=== PATIENT | male | born 1960 | race Caucasian/White ===

== ENCOUNTER 2017-11-23 09:27 | Inpatient (IN) ==
--- NOTE | 2017-11-23 11:47 | ED ---
HPI General Chief complaint: Extremity Injury, Lower Stated complaint: both legs swollen Time Seen by Provider: 11/23/17 11:20 Source: patient Mode of arrival: ambulatory Limitations: no limitations History of Present Illness HPI Narrative: 57-year-old male complaining of lower extremity swelling. Patient states that he noticed increasing swelling of lower extremity for the past 10 days. Patient had laceration to the right lower extremity 5 days ago. Patient denies any headache. Patient denies any chest pain shortness of breath. Patient has history of COPD. Patient does not have an inhaler at home. Patient denies any abdominal pain. Patient denies any nausea vomiting diarrhea. Patient denies any extremity pain. Patient denies fever chills. Patient is a smoker. Patient denies any past medical history. Patient states he drinks alcohol occasionally. MD Complaint: extremity swelling Onset (ago): day(s) Pain Consistency: constant Location: lower extremity Severity scale (1-10): 5 Radiation: none Relieving factors: nothing Exacerbating factors: nothing Associated symptoms: denies other symptoms Related Data Allergies Allergy/AdvReac Type Severity Reaction Status Date / Time No Known Allergies Allergy Uncoded 02/28/13 14:36 Review of Systems ROS: all other systems reviewed are negative PMFSH Medical History Medical History COPD (chronic obstructive pulmonary disease) (Acute) HTN (hypertension) (Acute) Heel spur (Acute) High cholesterol (Acute) Hx of fracture of leg (Acute) Surgical History Surgical History History of surgery on arm (Acute) Hx of foot surgery (Acute) Social History Social History Substance History: Active Abuse Second Hand Smoke Exposure: No Smoking Status: Current every day smoker Tobacco Type: Cigarettes How Often Do You Have a Drink Containing Alcohol: 2 to 4 times a month Recent Travel in [facility] within the Last 8 Weeks: No Recent Out of Country Travel within the Last 8 Weeks: No Exam Narrative Exam Narrative: GENERAL: Well-nourished, well-developed patient. SKIN: Focused skin assessment warm/dry. HEAD: Normocephalic. EYES: No scleral icterus. No injection or drainage. NECK: Supple, trachea midline. No JVD or lymphadenopathy. CARDIOVASCULAR: Regular rate and rhythm without murmurs, gallops, or rubs. RESPIRATORY: Breath sounds equal bilaterally. No accessory muscle use. Patient has moderate expiratory wheezes bilaterally. GASTROINTESTINAL: Abdomen soft, non-tender, nondistended. MUSCULOSKELETAL: Patient has bilateral +1-+2 pitting edema lower extremity. Patient has subacute laceration right lower leg dementia 4 cm with redness swelling associated with the wound. Minimal discharge noted. Mild redness associate with the lower extremity bilaterally. BACK: Nontender without obvious deformity. No CVA tenderness. Course Initial Documented Vital Signs Temperature 98.5 F 11/23/17 09:31 Pulse Rate 108 H 11/23/17 09:31 Respiratory Rate 20 11/23/17 09:31 Blood Pressure 176/130 H 11/23/17 09:31 Pulse Oximetry 94 L 11/23/17 09:31 Last Documented Vital Signs Temperature 98.5 F 11/23/17 09:31 Pulse Rate 102 H 11/23/17 13:00 Respiratory Rate 24 11/23/17 13:00 Blood Pressure 193/102 H 11/23/17 13:00 Pulse Oximetry 92 L 11/23/17 13:00 Medical Decision Making MDM Narrative Medical decision making narrative: 57-year-old male with bilateral extremity swelling. Patient's blood pressure is elevated. Patient has wheezing. History of COPD. Patient had a laceration right lower extremity. Differential Diagnosis Differential Diagnosis: Differential diagnosis including dependent edema, acute exacerbation COPD, cellulitis, DVT , CHF. Lab Data Lab results reviewed: Yes I reviewed the patient's lab results. Result diagrams: 11/23/17 11:45 11/23/17 11:45 Lab Results 11/23/17 11/23/17 11/23/17 Range/Units 11:45 11:45 11:45 WBC 7.1 (4.0-11.0) th/mm3 RBC 5.01 (4.50-5.90) mil/mm3 Hgb 16.1 (13.0-17.0) gm/dL Hct 48.3 (39.0-51.0) % MCV 96.4 (80.0-100.0) fL MCH 32.0 (27.0-34.0) pg MCHC 33.2 (32.0-36.0) % RDW 13.5 (11.6-17.2) % Plt Count 201 (150-450) th/mm3 MPV 7.6 (7.0-11.0) fL Neut % (Auto) 69.4 (16.0-70.0) % Lymph % (Auto) 16.3 (9.0-44.0) % [place] % (Auto) 12.1 H (0.0-8.0) % Eos % (Auto) 1.5 (0.0-4.0) % Baso % (Auto) 0.7 (0.0-2.0) % Neut # (Auto) 4.9 (1.8-7.7) th/mm3 Lymph # (Auto) 1.2 (1.0-4.8) th/mm3 [place] # (Auto) 0.9 (0.0-0.9) th/mm3 Eos # (Auto) 0.1 (0.0-0.4) th/mm3 Baso # (Auto) 0.0 (0.0-0.2) th/mm3 WBC Differential . Differential Comment Auto diff final PT 10.7 (9.8-11.6) sec INR 1.1 Ratio APTT 26.1 (24.3-30.1) sec D-Dimer Quant (PE/DVT) 1.59 H (0.00-0.50) mg/L FEU Sodium 138 (136-145) meq/L Potassium 4.3 (3.5-5.1) meq/L Chloride 100 (98-107) meq/L Carbon Dioxide 32.6 H (21.0-32.0) meq/L Anion Gap 5 (5-15) meq/L BUN 13 (7-18) mg/dL Creatinine 0.73 (0.60-1.30) mg/dL Estimated GFR Greater than 89 (>89) mL/min Random Glucose 88 (74-106) mg/dL Calcium 9.3 (8.5-10.1) mg/dL Total Bilirubin 0.5 (0.2-1.0) mg/dL AST 38 H (15-37) U/L ALT 21 (12-78) U/L Alkaline Phosphatase 87 (45-117) U/L B-Natriuretic Peptide (0-100) pg/mL Total Protein 6.6 (6.4-8.2) g/dL Albumin 3.1 L (3.4-5.0) g/dL 11/23/17 Range/Units 11:45 WBC (4.0-11.0) th/mm3 RBC (4.50-5.90) mil/mm3 Hgb (13.0-17.0) gm/dL Hct (39.0-51.0) % MCV (80.0-100.0) fL MCH (27.0-34.0) pg MCHC (32.0-36.0) % RDW (11.6-17.2) % Plt Count (150-450) th/mm3 MPV (7.0-11.0) fL Neut % (Auto) (16.0-70.0) % Lymph % (Auto) (9.0-44.0) % [place] % (Auto) (0.0-8.0) % Eos % (Auto) (0.0-4.0) % Baso % (Auto) (0.0-2.0) % Neut # (Auto) (1.8-7.7) th/mm3 Lymph # (Auto) (1.0-4.8) th/mm3 [place] # (Auto) (0.0-0.9) th/mm3 Eos # (Auto) (0.0-0.4) th/mm3 Baso # (Auto) (0.0-0.2) th/mm3 WBC Differential Differential Comment PT (9.8-11.6) sec INR Ratio APTT (24.3-30.1) sec D-Dimer Quant (PE/DVT) (0.00-0.50) mg/L FEU Sodium (136-145) meq/L Potassium (3.5-5.1) meq/L Chloride (98-107) meq/L Carbon Dioxide (21.0-32.0) meq/L Anion Gap (5-15) meq/L BUN (7-18) mg/dL Creatinine (0.60-1.30) mg/dL Estimated GFR (>89) mL/min Random Glucose (74-106) mg/dL Calcium (8.5-10.1) mg/dL Total Bilirubin (0.2-1.0) mg/dL AST (15-37) U/L ALT (12-78) U/L Alkaline Phosphatase (45-117) U/L B-Natriuretic Peptide 984 H (0-100) pg/mL Total Protein (6.4-8.2) g/dL Albumin (3.4-5.0) g/dL Imaging Data Attestation: I personally reviewed and interpreted this imaging study as follows : Radiologist's impression: Chest X-Ray 11/23/17 11:26 CONCLUSION: Mild compensated cardiomegaly. Clear lungs. Venous Doppler Study 11/23/17 11:26 CONCLUSION: 1. No evidence of deep venous thrombosis. Discharge Plan Discharge Disposition Patient Disposition: 30 Still Patient Discharge Details Diagnosis: CHF (congestive heart failure), Infected open wound, COPD with acute exacerbation Physicians Team ED Provider: Wolfgang Becerra Primary Care Provider: Primary Care Physici,No Discharge Interventions Interventions: Vital Signs Last Done: 11/23/17 13:00 Status ED Status: With Doctor
--- NOTE | 2017-11-23 11:57 | XR ---
EXAM DATE: 11/23/2017 11:52 AM EDT AGE/SEX: 57 years / Male INDICATIONS: Cough and shortness of breath. CLINICAL DATA: This is the patient's initial encounter. Patient reports that signs and symptoms have been present for 2 days and indicates a pain score of 0/10. MEDICAL/SURGICAL HISTORY: Chronic obstructive pulmonary disease. Congestive heart failure. Hy pertension. Asthma. None. COMPARISON: No prior exams available for comparison. FINDINGS: No infiltrate, effusion or pneumothorax demonstrated. There is mild cardiomegaly, age indeterminate. CONCLUSION: Mild compensated cardiomegaly. Clear lungs. Electronically signed by: Robert Belle MD 11/23/2017 11:56 AM EDT
[2017-11-23 12:30] LABS: Baso % (Auto) 0.7 % (0.0-2.0); Eos # (Auto) 0.1 th/mm3 (0.0-0.4); Eos % (Auto) 1.5 % (0.0-4.0); Hematocrit 48.3 % (39.0-51.0); Hemoglobin 16.1 gm/dL (13.0-17.0); Lymph # (Auto) 1.2 th/mm3 (1.0-4.8); Lymph % (Auto) 16.3 % (9.0-44.0); Mean Corpuscular HGB Conc 33.2 % (32.0-36.0); Mean Corpuscular Volume 96.4 fL (80.0-100.0); Mean Platelet Volume 7.6 fL (7.0-11.0); Mono # (Auto) 0.9 th/mm3 (0.0-0.9); Mono % (Auto) 12.1 % (0.0-8.0); Neut # (Auto) 4.9 th/mm3 (1.8-7.7); Neut % (Auto) 69.4 % (16.0-70.0); Platelet Count 201 th/mm3 (150-450); Red Blood Count 5.01 mil/mm3 (4.50-5.90); Red Cell Distribution Width 13.5 % (11.6-17.2); White Blood Count 7.1 th/mm3 (4.0-11.0)
--- NOTE | 2017-11-23 12:35 | US ---
EXAM DATE: 11/23/2017 12:31 PM EDT AGE/SEX: 57 years / Male INDICATIONS: Bilateral leg swelling. CLINICAL DATA: This is the patient's initial encounter. Patient reports that signs and symptoms have been present for 1 week and indicates a pain score of 2/10. MEDICAL/SURGICAL HISTORY: . Bilateral leg swelling. None. COMPARISON: No prior exams available for comparison. TECHNIQUE: Venous ultrasound of both lower extremities was performed from the inguinal ligament to t he proximal calf. Real-time, color Doppler and spectral tracing, compression and augmentation techni ques were used. FINDINGS: Right Leg: Normal compression of the deep venous system from the inguinal region to the proximal bret f. No echogenic clot is seen. Normal response of the venous system to augmentation and respiration. Left Leg: Normal compression of the deep venous system from the inguinal region to the proximal calf . No echogenic clot is seen. Normal response of the venous system to augmentation and respiration. Other: Lymph nodes are noted in both groin regions. CONCLUSION: 1. No evidence of deep venous thrombosis. Electronically signed by: Isac Gallegos MD 11/23/2017 12:34 PM EDT
[2017-11-23 12:45] LABS: Activated Partial Thrombo Time 26.1 sec (24.3-30.1); INR 1.1 Ratio; Prothrombin Time 10.7 sec (9.8-11.6)
[2017-11-23 12:48] LABS: D-Dimer 1.59 mg/L FEU (0.00-0.50)
[2017-11-23 12:50] LABS: Albumin 3.1 g/dL (3.4-5.0); Anion Gap 5 meq/L (5-15); Aspartate Aminotransferase 38 U/L (15-37); Blood Urea Nitrogen 13 mg/dL (7-18); Calcium 9.3 mg/dL (8.5-10.1); Carbon Dioxide 32.6 meq/L (21.0-32.0); Chloride 100 meq/L (98-107); Glomerular Filtration Rate Greater Than 89 mL/min (>89); Glucose,Random 88 mg/dL (74-106); Potassium 4.3 meq/L (3.5-5.1); Sodium 138 meq/L (136-145)
[2017-11-23 12:52] LABS: Alanine Aminotransferase 21 U/L (12-78)
[2017-11-23 12:53] LABS: Alkaline Phosphatase 87 U/L (45-117); Total Protein 6.6 g/dL (6.4-8.2)
[2017-11-23] MEDS ORDERED: Vancomycin Inj 1 GM/200 ML PIGGYBACK IV.SIG ONE (13:20)
[2017-11-23] MEDS ORDERED: Vancomycin Inj 1,000 MG in Sodium Chlor 0.9% Inj 250 ML IV.SIG ONE (14:00)
[2017-11-23] MEDS ORDERED: Bisacodyl 10 MG Supp RECTAL PRN (14:27)
[2017-11-23] MEDS: Heparin - SQ 10,000 UNITS/ML Vial SQ SCH (15:48)
[2017-11-23] MEDS ORDERED: Vancomycin Inj 1,000 MG in Sodium Chlor 0.9% Inj 250 ML IV.SIG SCH (16:00)
[2017-11-23] MEDS ORDERED: Vancomycin Consult Pharmacy 1 EACH OTHER SCH (16:00)
[2017-11-23 16:49] LABS: Chol/HDL Ratio 3.19 Ratio; HDL Cholesterol 54.1 mg/dL (40.0-60.0)
--- NOTE | 2017-11-23 16:55 | MB ---
cc: Jorge Steiner MD, Vance E MD DATE: 11/23/2017 REASON FOR CONSULTATION:: Evaluation of edema and an elevated BNP. HISTORY OF PRESENT ILLNESS: Black Yeung is a 57-year-old man. He says he knows he has high blood pressure, but he does not take any medications for it. He lives with his parents, does not work. He has COPD. His blood pressure is markedly elevated and he has lower extremity edema. He has chronic severe shortness of breath, which has been worse for the past 6 months. Chest x-ray is not showing any CHF, but he does have cardiomegaly and he has lower extremity edema and an elevated BNP. PAST MEDICAL HISTORY: Includes leg fracture, foot surgery, arm surgery, hypertension, hyperlipidemia, COPD, ongoing smoking and tobacco abuse. SOCIAL HISTORY: Smokes a pack a day, drinks a couple of beers twice a week. FAMILY HISTORY: Negative. REVIEW OF SYSTEMS: Noncontributory. PHYSICAL EXAMINATION: GENERAL: Well-developed, well-nourished white male, does not appear to be in acute distress. VITAL SIGNS: Charted. His blood pressure is high. HEENT: Unremarkable. NECK: No JVD. No bruits. CHEST: Shows diminished breath sounds throughout. CARDIAC: S1, S2, regular rate and rhythm. Cannot hear murmurs or gallops. ABDOMEN: Soft, nontender. EXTREMITIES: Reveal 2+ lower extremity edema. LABORATORY DATA: Charted. His hematocrit is 48.3. His creatinine is 0.73. BNP is elevated at 984. Lipid panel is pending. IMAGING STUDIES: Chest x-ray shows cardiomegaly and clear lungs. CARDIOLOGY STUDIES: EKG shows sinus rhythm with LVH. He has hypertensive heart disease with left ventricular hypertrophy. I will start Carvedilol 12.5 b.i.d., lisinopril 20 mg b.i.d. and Lasix 40 mg once a day a 2-D echo Doppler is ordered. MD OLESYA Woodruff/ , 04:41 PM , 04:48 PM
--- NOTE | 2017-11-23 17:15 | P.HP ---
History of Present Illness Primary Care Physician: No Primary Care Physician Chief Complaint: sob, edema in his legs History of Present Illness: 57-year-old male without known PMH came to the ED for evaluation of bilateral lower extremity swelling, sob and right leg wound. Patient states that he noticed increasing swelling of lower extremity for the past 10 days. Patient had laceration to the right lower extremity 5 days ago. The patient says he took azithromycin for the past 5 days , this antibiotic he got from his mother, says wound is not improving. Says swelling in his both legs is not related to the wound as he had swelling before. No fever or chills. Patient denies any chest pain. He is sob and he is wheezing. Patient has history of COPD not on meds. He doesn't have a PCP and has not sen any doctor lately. Patient does not have an inhaler at home. Patient denies any abdominal pain. Patient denies any nausea vomiting diarrhea. Patient denies any extremity pain. Patient denies fever, chills. Patient is a smoker. Patient denies any past medical history. Patient states he drinks alcohol occasionally. Inpatient Certification: I certify that the inpatient services were ordered in accordance with Medicare regulations governing the order. This includes certification that hospital inpatient services are reasonable and necessary and in the case of services not specified as inpatient-only under 42 CFR 419.22(n), that they are appropriately provided as inpatient services in accordance to with the 2-midnight benchmark under 43 CFR 412.3(e) Estimated Total Length of Stay (Days): 3 Plans for Post Hospital Care: Home Review of Systems All other systems reviewed negative except as stated in [facility] - History History Provided By: Patient - Medical History Medical History: Medical History (Last Reviewed 11/23/17 @ 19:05 by Dede Bernard MD) COPD (chronic obstructive pulmonary disease) HTN (hypertension) Heel spur High cholesterol Hx of fracture of leg - Surgical History Surgical History: Surgical History (Last Reviewed 11/23/17 @ 19:05 by Dede Bernard MD) History of surgery on arm Hx of foot surgery - Family History Family History: Family History (Last Updated 11/23/17 @ 19:05 by Dede Bernard MD) Other HTN (hypertension) - Tobacco History Second Hand Smoke Exposure: No Tobacco Use In Past 30 Days: Yes Smoking Status: Current every day smoker Tobacco Type: Cigarettes Packs Per Day: 1 - Alcohol History How Often Do You Have a Drink Containing Alcohol: 2 to 4 times a month - Substance Use History Substance History: Active Abuse - Substance Use Type Marijuana Status: Active - Travel History Recent Travel in the [place] Within the Last 8 Weeks: No Recent Travel Out of the Country Within the Last 8 Weeks: No - Immunization History Tetanus Immunization: >5 Years Hx Influenza Vaccine This Season: No Medications and Allergies Active Medications: Active Medications Al Hydroxide/Mg Hydroxide (Milk Of Magnesia Liq) 30 ml PO Q12H PRN PRN Reason: Mild Constipation Bisacodyl (Dulcolax Supp) 10 mg RECTAL DAILY PRN PRN Reason: SEVERE CONSITIPATION Carvedilol (Coreg) 12.5 mg PO BID [facility] Furosemide (Lasix) 40 mg PO DAILY CHARLIE Furosemide (Lasix Inj) 40 mg IV.PUSH BID@0900,1800 [facility] Heparin Sodium (Porcine) (Heparin Inj) 5,000 units SQ Q12H [facility] Last Admin: 11/23/17 15:48 Dose: 5,000 units Pharmacy Profile Note (Vancomycin Consult Pharmacy) 0 mls @ 0 mls/hr OTHER UNSCH [facility] Vancomycin HCl 1,000 mg/ (Sodium Chloride) 250 mls @ 250 mls/hr IV.SIG Q12H [facility] Last Admin: 11/23/17 17:12 Dose: Not Given Lactulose (Lactulose Liq) 30 ml PO DAILY PRN PRN Reason: SEVERE CONSITIPATION Lisinopril (Prinivil) 20 mg PO BID [facility] Nicotine (Habitrol 21 Mg Patch.24 Hr) 1 patch T-DERMAL DAILY [facility] Ondansetron HCl (Zofran Inj) 4 mg IV.PUSH Q6H PRN PRN Reason: NAUSEA OR VOMITING Patch Removal (Remove Old Patch) 1 each T-DERMAL DAILY [facility] Potassium Chloride (K-Dur) 20 meq PO BID [facility] Senna/Docusate Sodium (Elinor-Colace) 1 tab PO BID [facility] Sennosides (Senokot) 17.2 mg PO Q12H PRN PRN Reason: Moderate Constipation Temazepam (Restoril) 15 mg PO HS PRN PRN Reason: INSOMNIA Allergies Allergy/AdvReac Type Severity Reaction Status Date / Time No Known Allergies Allergy Verified 11/23/17 14:20 Exam Vital signs: Vital Signs 11/23/17 09:31 11/23/17 09:39 11/23/17 11:45 Temperature 98.5 F Pulse Rate 108 H 198 H Respiratory Rate 20 24 Blood Pressure 176/130 H 172/118 H 184/137 H Pulse Oximetry 94 L 97 11/23/17 11:50 11/23/17 12:30 11/23/17 13:00 Temperature Pulse Rate 101 H 88 102 H Respiratory Rate 20 15 24 Blood Pressure 185/119 H 193/102 H Pulse Oximetry 92 L 92 L 11/23/17 13:30 11/23/17 15:30 Temperature Pulse Rate 89 110 H Respiratory Rate 25 H 18 Blood Pressure 182/133 H 188/119 H Pulse Oximetry 94 L 93 L Intake & Output 11/22/17 11/23/17 11/23/17 18:59 06:59 18:59 Intake Total 250 / 250 Output Total 300 / 300 Balance -50 / -50 Weight 77.111 kg Intake: IV 250 / 250 Vancomycin Inj 1,000 MG In NS 250 / 250 Inj 250 ML @ 200 mls/hr IV.SIG ONCE ONE Rx#:[id number] Output: Urine 300 / 300 Other: Post Void Residual 1 Narrative: GENERAL: 57 yo male, with wheezing, some sob. SKIN: Right mid lateral lower leg 4 cm subacute laceration with redness swelling associated with the wound. Minimal discharge noted. Mild redness associate with the lower extremity bilaterally. HEAD: Atraumatic. Normocephalic. EYES: Pupils equal and round. No scleral icterus. No injection or drainage. ENT: No nasal bleeding or discharge. Mucous membranes pink and moist. NECK: Trachea midline. No JVD. CARDIOVASCULAR: Regular rate and rhythm. RESPIRATORY: Expiratory wheezing scattered. No accessory muscle use. GASTROINTESTINAL: Abdomen soft, non-tender, nondistended. Hepatic and splenic margins not palpable. MUSCULOSKELETAL: Extremities without clubbing, cyanosis. 2-3+ bilateral LE edema. No obvious deformities. NEUROLOGICAL: Awake and alert. No obvious cranial nerve deficits. Motor grossly within normal limits. Five out of 5 muscle strength in the arms and legs. Normal speech. PSYCHIATRIC: Appropriate mood and affect; insight and judgment normal. Results - Labs CBC & Chem 7: 11/23/17 11:45 11/23/17 11:45 Labs: Laboratory Results - last 24 hr 11/23/17 11/23/17 11/23/17 11:45 11:45 11:45 WBC 7.1 RBC 5.01 Hgb 16.1 Hct 48.3 MCV 96.4 MCH 32.0 MCHC 33.2 RDW 13.5 Plt Count 201 MPV 7.6 Neut % (Auto) 69.4 Lymph % (Auto) 16.3 [place] % (Auto) 12.1 H Eos % (Auto) 1.5 Baso % (Auto) 0.7 Neut # (Auto) 4.9 Lymph # (Auto) 1.2 [place] # (Auto) 0.9 Eos # (Auto) 0.1 Baso # (Auto) 0.0 WBC Differential . Differential Comment Auto diff final PT 10.7 INR 1.1 APTT 26.1 D-Dimer Quant (PE/DVT) 1.59 H Sodium 138 Potassium 4.3 Chloride 100 Carbon Dioxide 32.6 H Anion Gap 5 BUN 13 Creatinine 0.73 Estimated GFR Greater than 89 Random Glucose 88 Calcium 9.3 Total Bilirubin 0.5 AST 38 H ALT 21 Alkaline Phosphatase 87 B-Natriuretic Peptide Total Protein 6.6 Albumin 3.1 L Triglycerides Cholesterol LDL Cholesterol, Calc HDL Cholesterol Cholesterol/HDL Ratio 11/23/17 11/23/17 11:45 11:45 WBC RBC Hgb Hct MCV MCH MCHC RDW Plt Count MPV Neut % (Auto) Lymph % (Auto) [place] % (Auto) Eos % (Auto) Baso % (Auto) Neut # (Auto) Lymph # (Auto) [place] # (Auto) Eos # (Auto) Baso # (Auto) WBC Differential Differential Comment PT INR APTT D-Dimer Quant (PE/DVT) Sodium Potassium Chloride Carbon Dioxide Anion Gap BUN Creatinine Estimated GFR Random Glucose Calcium Total Bilirubin AST ALT Alkaline Phosphatase B-Natriuretic Peptide 984 H Total Protein Albumin Triglycerides 70 Cholesterol 173 LDL Cholesterol, Calc 105 H HDL Cholesterol 54.1 Cholesterol/HDL Ratio 3.19 - Imaging Impressions Chest X-Ray 11/23/17 11:26 CONCLUSION: Mild compensated cardiomegaly. Clear lungs. Venous Doppler Study 11/23/17 11:26 CONCLUSION: 1. No evidence of deep venous thrombosis. Caprini VTE Risk Assessment Caprini VTE Risk Assessment: Moderate/High Risk (score >= 2) Caprini Risk Assessment Model: Point Value = 1 Point Value = 2 Point Value = 3 Point Value = 5 Age 41-60 Minor surgery BMI > 25 kg/m2 Swollen legs Varicose veins or History of unexplained or recurrent spontaneous Oral contraceptives or hormone replacement Sepsis (< 1 month) Serious lung disease, including pneumonia (< 1 month) Abnormal pulmonary function Acute myocardial infarction Congestive heart failure (< 1 month) History of inflammatory bowel disease Medical patient at bed rest Age 61-74 Arthroscopic surgery Major open surgery (> 45 min) Laparoscopic surgery (> 45 min) Malignancy Confined to bed (> 72 hours) Immobilizing plaster cast Central venous access Age >= 75 History of VTE Family history of VTE Factor V Leiden Prothrombin [id number] Lupus anticoagulant Anticardiolipin antibodies Elevated serum homocysteine Heparin-induced thrombocytopenia Other congenital or acquired thrombophilia Stroke (< 1 month) Elective arthroplasty Hip, pelvis, or leg fracture Acute spinal cord injury (< 1 month) Prophylaxis Regimen: Total Risk Factor Score Risk Level Prophylaxis Regimen 0-1 Low Early ambulation 2 Moderate Order ONE of the following: *Sequential Compression Device (SCD) *Heparin 5000 units SQ BID 3-4 Higher Order ONE of the following medications: *Heparin 5000 units SQ TID *Enoxaparin/Lovenox 40 mg SQ daily (WT < 150 kg, CrCl > 30 mL/min) *Enoxaparin/Lovenox 30 mg SQ daily (WT < 150 kg, CrCl > 10-29 mL/min) *Enoxaparin/Lovenox 30 mg SQ BID (WT < 150 kg, CrCl > 30 mL/min) AND/OR *Sequential Compression Device (SCD) 5 or more Highest Order ONE of the following medications: *Heparin 5000 units SQ TID (Preferred with Epidurals) *Enoxaparin/Lovenox 40 mg SQ daily (WT < 150 kg, CrCl > 30 mL/min) *Enoxaparin/Lovenox 30 mg SQ daily (WT < 150 kg, CrCl > 10-29 mL/min) *Enoxaparin/Lovenox 30 mg SQ BID (WT < 150 kg, CrCl > 30 mL/min) AND *Sequential Compression Device (SCD) Assessment and Plan - Plan 57-year-old male with bilateral extremity swelling. Patient's blood pressure is elevated. Patient has wheezing. History of COPD. Patient had a laceration right lower extremity. New onset CHF with elevated BNP on admission 900s COPD with exacerbation at this time Subacute laceration right mid lateral lower leg Noncompliant with follow ups doesn't follow with doctors Wound care Lasix 40 mg bid IV Started on vancomycin IV Duonebs check lipid panel, A1c Do 2D ECHO Consult cardiology Advice compliance with meds and follow up DVT ppx heparin sq Discussed Condition With: patient, nurse, Dr Becerra ED physician
[2017-11-23 18:07] LABS: Hemoglobin A1c 5.8 % (4.3-6.0)
[2017-11-23] MEDS: Lisinopril 20 MG Tablet PO SCH (18:39)
[2017-11-23] MEDS: Carvedilol 12.5 MG Tablet PO SCH (18:39)
[2017-11-23] MEDS ORDERED: Temazepam 15 MG Capsule PO PRN (21:00)
[2017-11-23] MEDS: Senna/Docusate Sodium 8.6/50 MG Tablet PO SCH (21:34)
[2017-11-23] MEDS: predniSONE 20 MG Tablet PO SCH (21:36)
--- NOTE | 2017-11-23 21:38 | ECG ---
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
[2017-11-24] MEDS ORDERED: Vancomycin Inj 1,250 MG in Sodium Chlor 0.9% Inj 250 ML IV.SIG SCH (02:00)
[2017-11-24] MEDS: Heparin - SQ 10,000 UNITS/ML Vial SQ SCH ×2 (03:55→13:29)
[2017-11-24 07:41] LABS: Baso % (Auto) 0.3 % (0.0-2.0); Eos % (Auto) 0.1 % (0.0-4.0); Hematocrit 49.3 % (39.0-51.0); Hemoglobin 16.5 gm/dL (13.0-17.0); Lymph # (Auto) 0.8 th/mm3 (1.0-4.8); Mean Corpuscular HGB Conc 33.4 % (32.0-36.0); Mean Corpuscular Volume 95.6 fL (80.0-100.0); Mean Platelet Volume 7.6 fL (7.0-11.0); Mono # (Auto) 0.4 th/mm3 (0.0-0.9); Mono % (Auto) 5.2 % (0.0-8.0); Neut # (Auto) 5.7 th/mm3 (1.8-7.7); Neut % (Auto) 82.4 % (16.0-70.0); Platelet Count 196 th/mm3 (150-450); Red Blood Count 5.15 mil/mm3 (4.50-5.90); Red Cell Distribution Width 13.6 % (11.6-17.2); White Blood Count 6.9 th/mm3 (4.0-11.0)
[2017-11-24 08:05] LABS: Anion Gap 8 meq/L (5-15); Blood Urea Nitrogen 19 mg/dL (7-18); Carbon Dioxide 32.5 meq/L (21.0-32.0); Chloride 97 meq/L (98-107); Glomerular Filtration Rate Greater Than 89 mL/min (>89); Glucose,Random 131 mg/dL (74-106); Potassium 4.3 meq/L (3.5-5.1); Sodium 137 meq/L (136-145)
[2017-11-24] MEDS: Lisinopril 20 MG Tablet PO SCH ×2 (08:35→20:33)
[2017-11-24] MEDS: Carvedilol 12.5 MG Tablet PO SCH ×2 (08:35→20:33)
[2017-11-24] MEDS: predniSONE 20 MG Tablet PO SCH (08:35)
[2017-11-24] MEDS: Senna/Docusate Sodium 8.6/50 MG Tablet PO SCH ×2 (08:36→20:33)
--- NOTE | 2017-11-24 08:54 | P.PNCA ---
Subjective Interval history: No complaints Physical Exam Vital signs: Vital Signs 11/23/17 09:31 11/23/17 09:39 11/23/17 11:45 Temperature 98.5 F Pulse Rate 108 H 198 H Respiratory Rate 20 24 Blood Pressure 176/130 H 172/118 H 184/137 H Pulse Oximetry 94 L 97 11/23/17 11:50 11/23/17 12:30 11/23/17 13:00 Temperature Pulse Rate 101 H 88 102 H Respiratory Rate 20 15 24 Blood Pressure 185/119 H 193/102 H Pulse Oximetry 92 L 92 L 11/23/17 13:30 11/23/17 13:57 11/23/17 15:30 Temperature Pulse Rate 89 103 H 110 H Respiratory Rate 25 H 20 18 Blood Pressure 182/133 H 175/123 H 188/119 H Pulse Oximetry 94 L 92 L 93 L 11/23/17 17:30 11/23/17 18:00 11/23/17 19:33 Temperature Pulse Rate 101 H 102 H 95 H Respiratory Rate 18 16 Blood Pressure 162/117 H 170/108 H 143/88 H Pulse Oximetry 95 11/23/17 20:00 11/23/17 21:51 11/24/17 03:31 Temperature 98.8 F 97.8 F Pulse Rate 96 H 87 91 H Respiratory Rate 18 18 16 Blood Pressure 132/91 H 139/92 H Pulse Oximetry 88 L 97 90 L 11/24/17 08:18 Temperature Pulse Rate 96 H Respiratory Rate 18 Blood Pressure Pulse Oximetry 92 L Intake & Output 11/23/17 11/24/17 11/24/17 18:59 06:59 18:59 Intake Total 250 / 250 262.5 / 262.5 Output Total 1400 / 1400 Balance -1150 / -1150 262.5 / 262.5 Weight 77.111 kg Intake: IV 250 / 250 262.5 / 262.5 Vancomycin Inj 1,000 MG In NS 250 / 250 Inj 250 ML @ 200 mls/hr IV.SIG ONCE ONE Rx#:[id number] Vancomycin Inj 1,250 MG In NS 262.5 / 262.5 Inj 250 ML @ 250 mls/hr IV.SIG Q12H [facility] Rx#:[id number] Output: Urine 1400 / 1400 Other: Post Void Residual 1 # Voids 3 Narrative: BP much better HEENT: AT/NC Neck no JVD Chest: rhonchi and wheezes CV S1S2 RRR Edema 1-2+ Assessment and Plan - Assessment (1) Noncompliance w/medication treatment due to intermit use of medication Code(s): Z91.14 - Patient's other noncompliance with medication regimen Status : Acute (2) Hypertensive heart disease with acute diastolic congestive heart failure Code(s): I11.0 - Hypertensive heart disease with heart failure; I50.31 - Acute diastolic (congestive) heart failure Status: Acute (3) COPD with acute exacerbation Code(s): J44.1 - Chronic obstructive pulmonary disease with (acute) exacerbation Status: Acute (4) Tobacco abuse Code(s): Z72.0 - Tobacco use Status: Acute - Plan CV status much more stable - I am signing off. Needs treatment for his Copd
[2017-11-24] MEDS ORDERED: Furosemide 40 MG Tablet PO SCH (09:00)
--- NOTE | 2017-11-24 10:02 | CT ---
EXAM DATE: 11/24/2017 9:51 AM EDT AGE/SEX: 57 years / Male INDICATIONS: Shortness of breath, bilateral leg swelling; evaluate for pulmonary embolism. CLINICAL DATA: This is the patient's initial encounter. Patient reports that signs and symptoms have been present for 2 days and indicates a pain score of 0/10. MEDICAL/SURGICAL HISTORY: Chronic obstructive pulmonary disease. Congestive heart failure. Hypert ension. None. RADIATION DOSE: 8.97 CTDI (mGy) COMPARISON: No prior exams available for comparison. TECHNIQUE: Volumetric scanning was performed using a multi-row detector CT scanner during bolus infu jean-claude of 73 ml Omnipaque 350 (iohexol) nonionic water-soluble contrast as a single exam dose. The anais a was post processed with a variety of visualization algorithms including full volume maximum intensi ty projection and sliding thin slab reformation. Using automated exposure control and adjustment of the mA and/or kV according to patient size, radiation dose was kept as low as reasonably achievable t o obtain optimal diagnostic quality images. DICOM format image data is available electronically for review and comparison. FINDINGS: No filling defects to suggest pulmonary embolic disease. There is peribronchial thickening, especiall y at the lung bases. No lung consolidation. No pleural effusion. Trace pericardial fluid. Minimal bas ilar atelectasis. Heart size is enlarged. No acute findings in the upper abdomen. CONCLUSION: 1. Negative for pulmonary embolus. 2. Fairly diffuse peribronchial thickening of unknown etiology. Minimal basilar atelectasis in the l ungs. Electronically signed by: Oli Kyle MD 11/24/2017 10:01 AM EDT
--- NOTE | 2017-11-24 10:10 | P.PN ---
Subjective Interval history: Follow-up for COPD, CHF, right leg wound/cellulitis. Patient reports overall feeling better today. He denies any significant shortness of breath while at rest, does get some mild dyspnea with exertion. He continues to have wheezing. He reports a nonproductive cough, improving. Denies fevers or chills. His lower extremity edema and erythema is improving. His O2 sat stable on room air. Denies any chest pain. Denies any other medical complaints at this time. Physical Exam Vital signs: Vital Signs 11/23/17 11:45 11/23/17 11:50 11/23/17 12:30 Temperature Pulse Rate 198 H 101 H 88 Respiratory Rate 24 20 15 Blood Pressure 184/137 H 185/119 H Pulse Oximetry 97 92 L 11/23/17 13:00 11/23/17 13:30 11/23/17 13:57 Temperature Pulse Rate 102 H 89 103 H Respiratory Rate 24 25 H 20 Blood Pressure 193/102 H 182/133 H 175/123 H Pulse Oximetry 92 L 94 L 92 L 11/23/17 15:30 11/23/17 17:30 11/23/17 18:00 Temperature Pulse Rate 110 H 101 H 102 H Respiratory Rate 18 18 Blood Pressure 188/119 H 162/117 H 170/108 H Pulse Oximetry 93 L 11/23/17 19:33 11/23/17 20:00 11/23/17 21:51 Temperature 98.8 F Pulse Rate 95 H 96 H 87 Respiratory Rate 16 18 18 Blood Pressure 143/88 H 132/91 H Pulse Oximetry 95 88 L 97 11/24/17 03:31 11/24/17 08:00 11/24/17 08:18 Temperature 97.8 F 98.8 F Pulse Rate 91 H 86 96 H Respiratory Rate 16 18 18 Blood Pressure 139/92 H Pulse Oximetry 90 L 93 L 92 L Intake & Output 11/23/17 11/24/17 11/24/17 18:59 06:59 18:59 Intake Total 250 / 250 262.5 / 262.5 Output Total 1400 / 1400 Balance -1150 / -1150 262.5 / 262.5 Weight 77.111 kg Intake: IV 250 / 250 262.5 / 262.5 Vancomycin Inj 1,000 MG In NS 250 / 250 Inj 250 ML @ 200 mls/hr IV.SIG ONCE ONE Rx#:[id number] Vancomycin Inj 1,250 MG In NS 262.5 / 262.5 Inj 250 ML @ 250 mls/hr IV.SIG Q12H [facility] Rx#:[id number] Output: Urine 1400 / 1400 Other: Post Void Residual 1 # Voids 3 Narrative: GENERAL: Well-nourished, well-developed middle-aged male patient in [facility]. Ambulating his room. SKIN: Warm and dry. No rash. Right lower extremity with healing scabbed wound at right lateral calf, surrounding mild erythema from the distal raya to the ankle. HEENT: Normocephalic. Atraumatic. Pupils equal and round. Mucous membranes pink and moist. NECK: Supple. Trachea midline. CARDIOVASCULAR: Regular rate and rhythm. No murmur appreciated. RESPIRATORY: No accessory muscle use. Diffuse expiratory wheezes with scattered rhonchi. Breath sounds equal bilaterally. GASTROINTESTINAL: Abdomen soft, non-tender, nondistended. Normoactive bowel sounds x4. MUSCULOSKELETAL: No obvious deformities. 2+ bilateral lower extremity pitting edema. NEUROLOGICAL: Awake and alert. No obvious cranial nerve deficits. Motor grossly within normal limits. Moving all extremities spontaneously. Normal speech. Results - Labs CBC & Chem 7: 11/24/17 07:11 11/24/17 07:11 Laboratory Results - last 24 hr 11/23/17 11/23/17 11/23/17 11:45 11:45 11:45 WBC 7.1 RBC 5.01 Hgb 16.1 Hct 48.3 MCV 96.4 MCH 32.0 MCHC 33.2 RDW 13.5 Plt Count 201 MPV 7.6 Neut % (Auto) 69.4 Lymph % (Auto) 16.3 Dawes % (Auto) 12.1 H Eos % (Auto) 1.5 Baso % (Auto) 0.7 Neut # (Auto) 4.9 Lymph # (Auto) 1.2 Dawes # (Auto) 0.9 Eos # (Auto) 0.1 Baso # (Auto) 0.0 WBC Differential . Differential Comment Auto diff final PT 10.7 INR 1.1 APTT 26.1 D-Dimer Quant (PE/DVT) 1.59 H Sodium 138 Potassium 4.3 Chloride 100 Carbon Dioxide 32.6 H Anion Gap 5 BUN 13 Creatinine 0.73 Estimated GFR Greater than 89 Random Glucose 88 Hemoglobin A1c Calcium 9.3 Total Bilirubin 0.5 AST 38 H ALT 21 Alkaline Phosphatase 87 B-Natriuretic Peptide Total Protein 6.6 Albumin 3.1 L Triglycerides Cholesterol LDL Cholesterol, Calc HDL Cholesterol Cholesterol/HDL Ratio 11/23/17 11/23/17 11/23/17 11:45 11:45 11:45 WBC RBC Hgb Hct MCV MCH MCHC RDW Plt Count MPV Neut % (Auto) Lymph % (Auto) Dawes % (Auto) Eos % (Auto) Baso % (Auto) Neut # (Auto) Lymph # (Auto) Dawes # (Auto) Eos # (Auto) Baso # (Auto) WBC Differential Differential Comment PT INR APTT D-Dimer Quant (PE/DVT) Sodium Potassium Chloride Carbon Dioxide Anion Gap BUN Creatinine Estimated GFR Random Glucose Hemoglobin A1c 5.8 Calcium Total Bilirubin AST ALT Alkaline Phosphatase B-Natriuretic Peptide 984 H Total Protein Albumin Triglycerides 70 Cholesterol 173 LDL Cholesterol, Calc 105 H HDL Cholesterol 54.1 Cholesterol/HDL Ratio 3.19 11/24/17 11/24/17 11/24/17 07:11 07:11 07:11 WBC 6.9 RBC 5.15 Hgb 16.5 Hct 49.3 MCV 95.6 MCH 32.0 MCHC 33.4 RDW 13.6 Plt Count 196 MPV 7.6 Neut % (Auto) 82.4 H Lymph % (Auto) 12.0 Dawes % (Auto) 5.2 Eos % (Auto) 0.1 Baso % (Auto) 0.3 Neut # (Auto) 5.7 Lymph # (Auto) 0.8 L Dawes # (Auto) 0.4 Eos # (Auto) 0.0 Baso # (Auto) 0.0 WBC Differential . Differential Comment Auto diff final PT INR APTT D-Dimer Quant (PE/DVT) Sodium 137 Potassium 4.3 Chloride 97 L Carbon Dioxide 32.5 H Anion Gap 8 BUN 19 H Creatinine 0.73 Estimated GFR Greater than 89 Random Glucose 131 H Hemoglobin A1c Calcium 9.0 Total Bilirubin AST ALT Alkaline Phosphatase B-Natriuretic Peptide 847 H Total Protein Albumin Triglycerides Cholesterol LDL Cholesterol, Calc HDL Cholesterol Cholesterol/HDL Ratio Microbiology 11/23/17 18:15 Abscess - Leg Gram Stain - Final - Imaging Impressions Chest X-Ray 11/23/17 11:26 CONCLUSION: Mild compensated cardiomegaly. Clear lungs. Venous Doppler Study 11/23/17 11:26 CONCLUSION: 1. No evidence of deep venous thrombosis. Chest CTA 11/24/17 00:00 CONCLUSION: 1. Negative for pulmonary embolus. 2. Fairly diffuse peribronchial thickening of unknown etiology. Minimal basilar atelectasis in the lungs. Assessment and Plan - Plan 57-year-old male with history of COPD, HTN, HLD, presents with bilateral lower extremity edema, shortness of breath, and right leg wound. Dyspnea: Suspect multifactorial with COPD exacerbation and CHF exacerbation, see treatment below. -D-dimer elevated, CTA chest negative for PE; fairly diffuse peribronchial thickening -Continue diuresis as below -Continue steroids, duo nebs -O2 as needed Acute COPD exacerbation: Patient with significant wheezing and rhonchi on exam -Continue steroids with prednisone 40 mg daily -Continue duo nebs every 6 hours -Wean O2 to keep O2 sat greater than 90% Acute CHF exacerbation: BNP elevated at 984. No history of CHF. -Consulted cardiology, believes to have hypertensive heart disease with left ventricular hypertrophy -Echocardiogram pending -Cardiology started the patient on Coreg 12.5 mg bid, lisinopril 20 mg bid -Continue diuresis with IV Lasix 40 mg bid -CHF symptoms improving, cardiology signed off, follow up as outpatient RLE Cellulitis/Wound: improving -change IV Vanco to po clinda 300mg q6h -symptoms improving, continue to monitor HTN/HLD: chronic -continue on Coreg and Lisinopril -LDL 105, start on lipitor 40mg hs, discussed risks -Monitor BP, adjust antihypertensives as needed DVT Prophylaxis: Heparin sq Discharge Planning: Likely discharge tomorrow if patient continues to improve.
--- NOTE | 2017-11-24 17:42 | ECHRPT ---
Indication: HEART FAILURE CONCLUSIONS The left ventricular systolic function is mildly reduced with an estimated ejection fraction in the range of 45- 50%. Moderate concentric left ventricular hypertrophy. The right ventricular systoilc function is mildly decreased. Trace mitral valve regurgitation. There is trace tricuspid valve regurgitation. BP: / HR: Rhythm: Sinus MEASUREMENTS (Male / Female) Normal Values Technical Quality:Good 2D ECHO LV Diastolic Diameter PLAX 5.6 cm 4.2 - 5.9 / 3.9 - 5.3 cm LV Systolic Diameter PLAX 4.6 cm IVS Diastolic Thickness 1.5 cm 0.6 - 1.0 / 0.6 - 0.9 cm LVPW Diastolic Thickness 1.5 cm 0.6 - 1.0 / 0.6 - 0.9 cm LV Relative Wall Thickness 0.5 LVOT Diameter 2.2 cm LA Systolic Diameter LX 4.0 cm 3.0 - 4.0 / 2.7 - 3.8 cm LV Ejection Fraction MOD 4C 44.3 % LV Ejection Fraction 4C AL 45.6 % M-MODE Aortic Root Diameter MM 4.3 cm LA Systolic Diameter MM 3.6 cm LA Ao Ratio MM 0.8 AV Cusp Separation MM 1.6 cm DOPPLER AV Peak Velocity 112.0 cm/s AV Peak Gradient 5.0 mmHg AI Peak Velocity 406.5 cm/s AI Peak Gradient 66.1 mmHg AI Pressure Half Time 365.5 ms LVOT Peak Velocity 90.3 cm/s LVOT Peak Gradient 3.3 mmHg AV Area Cont Eq pk 3.1 cm MV Area PHT 9.2 cm Mitral E Point Velocity 108.0 cm/s Mitral A Point Velocity 154.0 cm/s Mitral E to A Ratio 0.7 LV E' Lateral Velocity 7.1 cm/s Mitral E to LV E' Lateral Ratio 15.2 LV E' Septal Velocity 2.5 cm/s Mitral E to LV E' Septal Ratio 42.7 TR Peak Velocity 252.0 cm/s TR Peak Gradient 25.4 mmHg Right Atrial Pressure 10.0 mmHg Pulmonary Artery Systolic Pressu 35.4 mmHg Right Ventricular Systolic Press 35.4 mmHg PV Peak Velocity 74.7 cm/s PV Peak Gradient 2.2 mmHg FINDINGS LEFT VENTRICLE The left ventricular systolic function is mildly reduced with an estimated ejection fraction in the range of 45- 50%. Normal left ventricular size. Moderate concentric left ventricular hypertrophy. No regional wall motion abnormalities are present. RIGHT VENTRICLE The right ventricular systoilc function is mildly decreased. The right ventricle is mildly dilated. LEFT ATRIUM The left atrial size is normal. RIGHT ATRIUM The right atrial size is mildly dilated. ATRIAL SEPTUM Normal atrial septal thickness without atrial level shunting by limited color doppler interrogation. AORTA The aortic root and proximal ascending aorta are normal in size on limited imaging. MITRAL VALVE Structurally normal mitral valve. Trace mitral valve regurgitation. No mitral valve stenosis. AORTIC VALVE Trileaflet aortic valve. Mild aortic valve regurgitation. No aortic valve stenosis. TRICUSPID VALVE Structurally normal tricuspid valve. There is trace tricuspid valve regurgitation. The estimated pulmonary arterial pressure is 35.4 mmHg. PULMONARY VALVE No pulmonary valve regurgitation or stenosis. VESSELS The inferior vena cava is normal in size. PERICARDIUM No pericardial effusion. Zach العلي DO (Electronically Signed) Final Date:24 November 2017 17:40
[2017-11-24] MEDS: Lactobacillus Acidophilus/L. Spores Tablet PO SCH (20:33)
[2017-11-25] MEDS: Heparin - SQ 10,000 UNITS/ML Vial SQ SCH ×2 (01:40→14:41)
[2017-11-25] MEDS ORDERED: Pharmacy Ordered Lab Info OTHER ONE (01:45)
--- NOTE | 2017-11-25 08:51 | P.PN ---
Subjective Interval history: Follow-up for COPD, CHF, right leg wound/cellulitis. The patient reports mild improvement overnight although has continued shortness of breath and wheezing. Denies any fevers, chills, or cough today. He reports his lower extremity erythema/edema slowly improving. Denies any chest pain or palpitations. Denies any other medical complaints at this time. Physical Exam Vital signs: Vital Signs 11/24/17 12:00 11/24/17 16:00 11/24/17 16:18 Temperature 98.8 F 98.8 F Pulse Rate 94 H 88 94 H Respiratory Rate 18 18 18 Blood Pressure 150/99 H 139/91 H Pulse Oximetry 80 L 94 L 11/24/17 19:38 11/24/17 19:51 11/25/17 04:00 Temperature 98.7 F 97.5 F L Pulse Rate 95 H 90 82 Respiratory Rate 16 18 18 Blood Pressure 119/80 123/76 Pulse Oximetry 95 92 L 95 11/25/17 05:53 11/25/17 08:00 Temperature 97.7 F Pulse Rate 87 87 Respiratory Rate 16 18 Blood Pressure 130/91 H Pulse Oximetry 91 L Intake & Output 11/24/17 11/25/17 11/25/17 18:59 06:59 18:59 Intake Total 262.5 / 262.5 Balance 262.5 / 262.5 Intake: IV 262.5 / 262.5 Vancomycin Inj 1,250 MG In NS 262.5 / 262.5 Inj 250 ML @ 250 mls/hr IV.SIG Q12H [facility] Rx#:[id number] Narrative: GENERAL: Well-nourished, well-developed middle-aged male patient in [facility]. Ambulating his room. SKIN: Warm and dry. No rash. Right lower extremity with healing scabbed wound at right lateral calf, surrounding mild erythema from the distal raya to the ankle. HEENT: Normocephalic. Atraumatic. Pupils equal and round. Mucous membranes pink and moist. NECK: Supple. Trachea midline. CARDIOVASCULAR: Regular rate and rhythm. No murmur appreciated. RESPIRATORY: No accessory muscle use. Diffuse expiratory wheezes with scattered rhonchi. Breath sounds equal bilaterally. GASTROINTESTINAL: Abdomen soft, non-tender, nondistended. Normoactive bowel sounds x4. MUSCULOSKELETAL: No obvious deformities. 2+ bilateral lower extremity pitting edema. NEUROLOGICAL: Awake and alert. No obvious cranial nerve deficits. Motor grossly within normal limits. Moving all extremities spontaneously. Normal speech. Results - Labs CBC & Chem 7: 11/24/17 07:11 11/24/17 07:11 Laboratory Results - last 24 hr 11/24/17 08 07:11 07:40 B-Natriuretic Peptide 847 H 370 H Microbiology 11/23/17 18:15 Abscess - Leg Gram Stain - Final 11/23/17 18:15 Abscess - Leg Wound Culture - Preliminary Immature growth - reincubate - Imaging Impressions Chest X-Ray 11/23/17 11:26 CONCLUSION: Mild compensated cardiomegaly. Clear lungs. Venous Doppler Study 11/23/17 11:26 CONCLUSION: 1. No evidence of deep venous thrombosis. Chest CTA 11/24/17 00:00 CONCLUSION: 1. Negative for pulmonary embolus. 2. Fairly diffuse peribronchial thickening of unknown etiology. Minimal basilar atelectasis in the lungs. Assessment and Plan - Plan 57-year-old male with history of COPD, HTN, HLD, presents with bilateral lower extremity edema, shortness of breath, and right leg wound. Dyspnea: Suspect multifactorial with COPD exacerbation and CHF exacerbation, see treatment below. -D-dimer elevated, CTA chest negative for PE; however with diffuse peribronchial thickening -Continue diuresis as below -Continue steroids, duo nebs -O2 as needed Acute COPD exacerbation: Patient with significant wheezing and rhonchi on exam -Continue steroids, still with significant wheezing, changed prednisone to IV Solumedrol 40mg q8h -Continue duo nebs every 6 hours -Continue clinda to cover for possible pneumonia as well as cellulitis -Wean O2 to keep O2 sat greater than 90%; patient now on room air Acute CHF exacerbation: BNP elevated at 984. No history of CHF. -Consulted cardiology, believes to have hypertensive heart disease with left ventricular hypertrophy -Echocardiogram with EF 45-50%, moderate LVH, trace MR, trace TR -Cardiology started the patient on Coreg 12.5 mg bid, lisinopril 20 mg bid -Continue diuresis with IV Lasix 40 mg bid -CHF symptoms improving, cardiology signed off, follow up as outpatient RLE Cellulitis/Wound: improving -change IV Vanco to po clinda 300mg q6h -symptoms improving, continue to monitor -preliminary wound culture with staph aureus, susceptibilities pending HTN/HLD: chronic -continue on Coreg and Lisinopril -LDL 105, start on lipitor 40mg hs, discussed risks -Monitor BP, adjust antihypertensives as needed DVT Prophylaxis: Heparin sq Discharge Planning: Possible discharge tomorrow if patient continues to improve.
[2017-11-25] MEDS: MethylPREDNISolone Sod Succinate Inj 40 MG/ML Vial IV.PUSH SCH ×2 (10:04→17:58)
[2017-11-25] MEDS: Carvedilol 12.5 MG Tablet PO SCH ×2 (10:06→21:44)
[2017-11-25] MEDS: Senna/Docusate Sodium 8.6/50 MG Tablet PO SCH ×2 (10:06→21:44)
[2017-11-25] MEDS: Lactobacillus Acidophilus/L. Spores Tablet PO SCH ×2 (10:07→21:43)
[2017-11-25] MEDS: Lisinopril 20 MG Tablet PO SCH ×2 (10:07→21:44)
[2017-11-25] MEDS ORDERED: Acetaminophen 325 MG Tablet PO PRN (18:35)
[2017-11-25] MEDS ORDERED: Ibuprofen 600 MG Tablet PO PRN (18:36)
[2017-11-26] MEDS: MethylPREDNISolone Sod Succinate Inj 40 MG/ML Vial IV.PUSH SCH ×2 (01:21→10:07)
[2017-11-26] MEDS: Heparin - SQ 10,000 UNITS/ML Vial SQ SCH (03:15)
[2017-11-26 08:28] VITALS: RESP 12
[2017-11-26] MEDS: Senna/Docusate Sodium 8.6/50 MG Tablet PO SCH (10:05)
[2017-11-26] MEDS: Lactobacillus Acidophilus/L. Spores Tablet PO SCH (10:06)
[2017-11-26] MEDS: Lisinopril 20 MG Tablet PO SCH (10:06)
[2017-11-26] MEDS: Carvedilol 12.5 MG Tablet PO SCH (10:07)
--- NOTE | 2017-11-26 10:51 | P.DS ---
Date of admission: 11/23/17 13:58 Primary care physician: No Primary Care Physician Brief History from admission: 57-year-old male without known PMH came to the ED for evaluation of bilateral lower extremity swelling, sob and right leg wound. Patient states that he noticed increasing swelling of lower extremity for the past 10 days. Patient had laceration to the right lower extremity 5 days ago. The patient says he took azithromycin for the past 5 days , this antibiotic he got from his mother, says wound is not improving. Says swelling in his both legs is not related to the wound as he had swelling before. No fever or chills. Patient denies any chest pain. He is sob and he is wheezing. Patient has history of COPD not on meds. He doesn't have a PCP and has not sen any doctor lately. Patient does not have an inhaler at home. Patient denies any abdominal pain. Patient denies any nausea vomiting diarrhea. Patient denies any extremity pain. Patient denies fever, chills. Patient is a smoker. Patient denies any past medical history. Patient states he drinks alcohol occasionally. DS: Medications - Discharge Medications Prescriptions: albuterol sulfate [Proventil HFA] 2 puff INHALATION Q4H PRN #1 inh PRN Reason: Shortness Of Breath Or Wheezing atorvastatin 40 mg PO HS #30 tab budesonide-formoterol 2 puff INHALATION Q12H #1 inh carvedilol [Coreg] 12.5 mg PO BID #60 tab clindamycin HCl 300 mg PO Q6HR #28 cap furosemide 40 mg PO DAILY PRN #30 tab PRN Reason: leg swelling lisinopril 40 mg PO DAILY #30 tab prednisone 10 mg PO DIRECTED #20 tab DS: Summary Hospital Course: Patient was admitted, started on diuresis and steroids and duo nebs and abx. Cardiology was consulted, deemed the patient to have hypertensive heart disease with LVH. CTA was negative for pulmonary embolism. Patient's respiratory status stabilized and was concluded to be more from COPD exacerbation than heart disease. Patient's cellulitis is also significantly improved with vancomycin as well as clindamycin. Patient has met maximal benefit from hospitalization and is clinically stable for discharge. I spent an extensive amount of time with the patient emphasizing the importance of remaining compliant with his medications and getting into see a primary care physician to avoid a rebound admission. Case management has already relayed options of PCP follow-up to the patient. - Time Spent with Patient Total time spent providing and/or coordinating discharge services: Less than 30 minutes - Quality: VTE Deep Vein Thrombosis/Pulmonary Embolism Present on Admission: No Exam Vital signs: Vital Signs 11/25/17 12:00 11/25/17 15:19 11/25/17 16:00 Temperature 98.1 F 97.8 F Pulse Rate 87 94 H Respiratory Rate 18 20 Blood Pressure 125/94 H 156/110 H Pulse Oximetry 95 93 L 94 L 11/25/17 19:44 11/25/17 20:00 11/26/17 00:00 Temperature 97.8 F 97.1 F L Pulse Rate 92 H 93 H 95 H Respiratory Rate 16 16 16 Blood Pressure 125/86 155/100 H Pulse Oximetry 94 L 91 L 92 L 11/26/17 04:00 11/26/17 08:00 11/26/17 08:28 Temperature 97.7 F 97.9 F Pulse Rate 91 H 88 75 Respiratory Rate 18 20 12 Blood Pressure 154/100 H 160/94 H Pulse Oximetry 91 L 96 92 L Intake & Output 11/25/17 11/26/17 11/26/17 18:59 06:59 18:59 Weight 80.4 kg 78.3 kg Narrative: Clear lungs bilaterally, unlabored breathing, no wheezing No lower extremity edema Trace left lower extremity erythema, healing scab on right anterior raya Results Procedures completed during hospitalization: . Labs on day of discharge: Labs from last 24 hours 11/26/17 07:15 B-Natriuretic Peptide 558 H - Impressions ITS Impressions Chest X-Ray 11/23/17 11:26 CONCLUSION: Mild compensated cardiomegaly. Clear lungs. Venous Doppler Study 11/23/17 11:26 CONCLUSION: 1. No evidence of deep venous thrombosis. Chest CTA 11/24/17 00:00 CONCLUSION: 1. Negative for pulmonary embolus. 2. Fairly diffuse peribronchial thickening of unknown etiology. Minimal basilar atelectasis in the lungs. Discharge Plan - Discharge Disposition Patient Disposition: 01 Discharge Home - Discharge Condition Condition: Stable - Discharge Order Discharge Orders: Discharge Order (Routine); Ordered 11/26/17 Ordered By: Mike Mckeon - Physicians Team Primary Care Provider: Primary Care Clemencia Molina Attending Provider: Mike Mckeon Other Providers: Jorge Steiner MD
[2017-11-26 12:52] VITALS: PULSE 84
[2017-11-26 13:08] VITALS: BP 134/75; TEMP 98; O2SAT 88
== END 2017-11-26 16:17 | disposition home or self-care (01) ==
LOC: NEPD 09:27 → NEDA 13:58 → NEPGCP 19:54 → N04 11-25 15:32
PROVIDERS: ADMIT Hospitalist; ATTEND Hospitalist

== ENCOUNTER 2018-04-25 13:37 | Inpatient (IN) ==
[2018-04-25] MEDS ORDERED: MethylPREDNISolone Sod Succinate Inj 125 MG/2 ML Vial IV.PUSH ONE (15:32)
--- NOTE | 2018-04-25 15:45 | XR ---
EXAM DATE: 04/25/2018 3:42 PM EST AGE/SEX: 57 years / Male INDICATIONS: Short of breath. CLINICAL DATA: This is the patient's initial encounter. Patient reports that signs and symptoms have been present for 1 day and indicates a pain score of 0/10. MEDICAL/SURGICAL HISTORY: Chronic obstructive pulmonary disease. None. COMPARISON: [facility] [place]ST 1V SINGLE AP, 11/23/2017. . FINDINGS: Slight cardiomegaly seen. Lungs are clear. CONCLUSION: No appreciable change. Electronically signed by: Yuridia Lugo MD Board Certified Radiologist 04/25/2018 3:44 PM EST
[2018-04-25] MEDS ORDERED: hydrALAZINE HCl Inj 20 MG/ML Vial IV.PUSH ONE (16:04)
[2018-04-25 16:05] LABS: Baso # (Auto) 0.1 th/mm3 (0.0-0.2); Baso % (Auto) 0.7 % (0.0-2.0); Eos # (Auto) 0.1 th/mm3 (0.0-0.4); Eos % (Auto) 1.7 % (0.0-4.0); Hemoglobin 17.5 gm/dL (13.0-17.0); Lymph # (Auto) 1.1 th/mm3 (1.0-4.8); Lymph % (Auto) 13.5 % (9.0-44.0); Mean Corpuscular Hemoglobin 33.5 pg (27.0-34.0); Mean Corpuscular Volume 95.7 fL (80.0-100.0); Mean Platelet Volume 7.1 fL (7.0-11.0); Mono # (Auto) 1.2 th/mm3 (0.0-0.9); Mono % (Auto) 13.6 % (0.0-8.0); Neut % (Auto) 70.5 % (16.0-70.0); Platelet Count 187 th/mm3 (150-450); Red Blood Count 5.22 mil/mm3 (4.50-5.90); Red Cell Distribution Width 13.4 % (11.6-17.2); White Blood Count 8.5 th/mm3 (4.0-11.0)
[2018-04-25 16:33] LABS: Alanine Aminotransferase 28 U/L (12-78)
[2018-04-25 16:37] LABS: Alkaline Phosphatase 118 U/L (45-117); Troponin I 0.05 ng/mL (0.02-0.05)
[2018-04-25 16:39] LABS: Anion Gap 6 meq/L (5-15); Aspartate Aminotransferase 62 U/L (15-37); Blood Urea Nitrogen 10 mg/dL (7-18); Calcium 9.2 mg/dL (8.5-10.1); Carbon Dioxide 33.2 meq/L (21.0-32.0); Chloride 89 meq/L (98-107); Glomerular Filtration Rate Greater Than 89 mL/min (>89); Glucose,Random 90 mg/dL (74-106); Potassium 4.2 meq/L (3.5-5.1); Sodium 128 meq/L (136-145)
--- NOTE | 2018-04-25 17:11 | ED ---
HPI General Chief Complaint: Respiratory Symptoms Stated Complaint: edema Time Seen by Provider: 04/25/18 15:19 Source: patient Mode of arrival: ambulatory Limitations: no limitations History of Present Illness 57-year-old male with PMH of CHF, COPD, HTN, current cigarette smoker presents the ED for evaluation of worsening shortness of breath. Gradual onset. Patient endorses chronic cough occasionally productive of yellow sputum. He denies fever, chills, chest pain, nausea, diaphoresis. He states that he has been out of "water pills" for about 6 weeks. He states that he is not O2 dependent at home. He does not have a primary care provider. No treatment attempted before arrival. Related Data Previous Rx's Medication Instructions Recorded albuterol sulfate [Proventil HFA] 2 puff INHALATION Q4H PRN #1 inh 11/26/17 atorvastatin 40 mg PO HS #30 tab 11/26/17 budesonide-formoterol 2 puff INHALATION Q12H #1 inh 11/26/17 carvedilol [Coreg] 12.5 mg PO BID #60 tab 11/26/17 clindamycin HCl 300 mg PO Q6HR #28 cap 11/26/17 furosemide 40 mg PO DAILY PRN #30 tab 11/26/17 lisinopril 40 mg PO DAILY #30 tab 11/26/17 prednisone 10 mg PO DIRECTED #20 tab 11/26/17 Allergies Allergy/AdvReac Type Severity Reaction Status Date / Time No Known Allergies Allergy Verified 11/23/17 14:20 Review of Systems ROS: all other systems reviewed are negative [facility] Medical History Medical History COPD (chronic obstructive pulmonary disease) (Acute) HTN (hypertension) (Acute) Heel spur (Acute) High cholesterol (Acute) Hx of fracture of leg (Acute) Surgical History Surgical History History of surgery on arm (Acute) Hx of foot surgery (Acute) Family History Family History Father HTN (hypertension) Mother HTN (hypertension) Social History Social History Substance History: Active Abuse Second Hand Smoke Exposure: No Smoking Status: Current every day smoker Tobacco Type: Cigarettes Packs Per Day: 1 Cigarettes Per Day: 20.0 How Often Do You Have a Drink Containing Alcohol: 2 to 4 times a month Recent Travel in [facility] within the Last 8 Weeks: No Recent Out of Country Travel within the Last 8 Weeks: No Exam Narrative Exam Narrative: GENERAL: Well-nourished, well-developed white male in moderate respiratory distress. O2 saturations 88%, improved to 95 on 2 L by nasal cannula. SKIN: Focused skin assessment warm/dry. The feet are edematous, erythematous warm and tender bilaterally. HEAD: Atraumatic. Normocephalic. EYES: Pupils equal and round. No scleral icterus. No injection or drainage. ENT: No nasal bleeding or discharge. Mucous membranes pink and moist. NECK: Trachea midline. No JVD. CARDIOVASCULAR: Regular rate and rhythm. No murmur appreciated. RESPIRATORY: + accessory muscle use. Coarse lung sounds throughout, expiratory wheezing noted in all burgos. Breath sounds equal bilaterally. GASTROINTESTINAL: Abdomen soft, non-tender, nondistended. Hepatic and splenic margins not palpable. MUSCULOSKELETAL: No obvious deformities. No clubbing. No cyanosis. 2+ edema to the lower extremities bilaterally. NEUROLOGICAL: Awake and alert. No obvious cranial nerve deficits. Motor grossly within normal limits. Normal speech. PSYCHIATRIC: Appropriate mood and affect; insight and judgment normal. Course Initial Documented Vital Signs Temperature 97.5 F L 04/25/18 13:45 Pulse Rate 104 H 04/25/18 13:45 Respiratory Rate 20 04/25/18 13:45 Blood Pressure 179/114 H 04/25/18 13:45 Pulse Oximetry 91 L 04/25/18 13:45 Last Documented Vital Signs Temperature 97.5 F L 04/25/18 13:45 Pulse Rate 97 H 04/25/18 15:57 Respiratory Rate 20 04/25/18 15:57 Blood Pressure 178/122 H 04/25/18 15:40 Pulse Oximetry 97 04/25/18 15:56 Medical Decision Making MDM Narrative Medical decision making narrative: 57-year-old male with PMH of COPD, CHF, hypertension, noncompliance presents to the ED for worsening shortness of breath. O2 saturations 91% on room air on presentation. O2 sats improved to 95 -98% on 2 L nasal cannula. BP 179/114. Patient in moderate distress with positive accessory muscle use with coarse lung sounds and wheezing. Significant edema to the knees bilaterally. Patient was administered IV Solu- Medrol, duo nebs, 40 mg Lasix, 1.25 mg Vasotec. On recheck he reports some improvement of his symptoms. He is continuously taking of the nasal cannula. I discussed the findings and the need for admission. The patient is agreeable. I spoke with Dr. Nieto who agrees to accept the patient to the medicine service. Please see medicine notes for disposition. Medical Screen Exam Complete: Yes Emergency Medical Condition: Yes Differential Diagnosis Differential Diagnosis: COPD exacerbation versus CHF exacerbation versus pneumonia versus cellulitis versus other Lab Data Result diagrams: 04/25/18 15:45 04/25/18 15:45 Lab Results 04/25/18 04/25/18 04/25/18 Range/Units 15:45 15:45 15:45 WBC 8.5 (4.0-11.0) th/mm3 RBC 5.22 (4.50-5.90) mil/mm3 Hgb 17.5 H (13.0-17.0) gm/dL Hct 50.0 (39.0-51.0) % MCV 95.7 (80.0-100.0) fL MCH 33.5 (27.0-34.0) pg MCHC 35.0 (32.0-36.0) % RDW 13.4 (11.6-17.2) % Plt Count 187 (150-450) th/mm3 MPV 7.1 (7.0-11.0) fL Neut % (Auto) 70.5 H (16.0-70.0) % Lymph % (Auto) 13.5 (9.0-44.0) % Clinch % (Auto) 13.6 H (0.0-8.0) % Eos % (Auto) 1.7 (0.0-4.0) % Baso % (Auto) 0.7 (0.0-2.0) % Neut # (Auto) 6.0 (1.8-7.7) th/mm3 Lymph # (Auto) 1.1 (1.0-4.8) th/mm3 Clinch # (Auto) 1.2 H (0.0-0.9) th/mm3 Eos # (Auto) 0.1 (0.0-0.4) th/mm3 Baso # (Auto) 0.1 (0.0-0.2) th/mm3 WBC Differential . Differential Comment Auto diff final Sodium 128 L (136-145) meq/L Potassium 4.2 (3.5-5.1) meq/L Chloride 89 L (98-107) meq/L Carbon Dioxide 33.2 H (21.0-32.0) meq/L Anion Gap 6 (5-15) meq/L BUN 10 (7-18) mg/dL Creatinine 0.81 (0.60-1.30) mg/dL Estimated GFR Greater than 89 (>89) mL/min Random Glucose 90 (74-106) mg/dL Calcium 9.2 (8.5-10.1) mg/dL Total Bilirubin 0.5 (0.2-1.0) mg/dL AST 62 H (15-37) U/L ALT 28 (12-78) U/L Alkaline Phosphatase 118 H (45-117) U/L Troponin I 0.05 (0.02-0.05) ng/mL B-Natriuretic Peptide 539 H (0-100) pg/mL Total Protein 7.0 (6.4-8.2) g/dL Albumin 3.0 L (3.4-5.0) g/dL Imaging Data Radiologist's impression: Chest X-Ray 04/25/18 15:20 CONCLUSION: No appreciable change. Discharge Plan Discharge Disposition Patient Disposition: ED Admit(ED Internal Use Only) Physicians Team ED Provider: Samuel Goode ED Midlevel Provider: Casandra Lr Primary Care Provider: Primary Care Clemencia Molina Rxs /Orders / Referrals /Forms Prescriptions: No Action atorvastatin 40 mg Tablet 40 mg PO HS Qty: 30 RF: 0 carvedilol [Coreg] 12.5 mg Tablet 12.5 mg PO BID Qty: 60 RF: 0 clindamycin HCl 300 mg Capsule 300 mg PO Q6HR Qty: 28 RF: 0 prednisone 10 mg Tablet 10 mg PO DIRECTED Qty: 20 RF: 0 furosemide 40 mg Tablet 40 mg PO DAILY PRN (Reason: leg swelling) Qty: 30 RF: 0 albuterol sulfate [Proventil HFA] 90 mcg/actuation Hfa Aerosol Inhaler 2 puff INHALATION Q4H PRN (Reason: Shortness Of Breath Or Wheezing) Qty: 1 RF : 0 budesonide-formoterol 80-4.5 mcg/actuation Hfa Aerosol Inhaler 2 puff INHALATION Q12H Qty: 1 RF: 0 lisinopril 40 mg Tablet 40 mg PO DAILY Qty: 30 RF: 0 Status ED Status: Pending Admission
[2018-04-25] MEDS ORDERED: Bisacodyl 10 MG Supp RECTAL PRN (17:33)
[2018-04-25] MEDS ORDERED: CLINDAMYCIN HCL 300 MG PO SCH (18:00)
--- NOTE | 2018-04-25 18:14 | P.HPIM ---
History of Present Illness Service: Hospitalist Primary Care Physician: No Primary Care Physician Chief Complaint: SOB, edema, CHF exacerbation History of Present Illness: Patient is seen in the emergency room prior to being admitted. He is extremely drowsy and provides very little history. He does wake with moderate stimulation and is able to give me his name and tell me that he is in the hospital. Does not tell me anything else. Information gathered mainly from ED staff and records. Per ED physician report patient presented to the ED for evaluation of worsening shortness of breath as well as cough with yellow sputum. He reported that he was out of his "water pills" for about 6 weeks. Review of records shows recent admission in November 2017 for similar complaints. Review of Systems Review of Systems: all other systems reviewed are negative [facility] Medical History Medical History COPD (chronic obstructive pulmonary disease) (Acute) HTN (hypertension) (Acute) Heel spur (Acute) High cholesterol (Acute) Hx of fracture of leg (Acute) Surgical History Surgical History History of surgery on arm (Acute) Hx of foot surgery (Acute) Family History Family History Father HTN (hypertension) Mother HTN (hypertension) Social History Social History Substance History: No History of Abuse Second Hand Smoke Exposure: Yes Smoking Status: Current every day smoker Tobacco Type: Cigarettes Packs Per Day: 1 Cigarettes Per Day: 20.0 How Often Do You Have a Drink Containing Alcohol: 2 to 3 times a week Recent Travel in [facility] within the Last 8 Weeks: No Recent Out of Country Travel within the Last 8 Weeks: No Immunization History Tetanus Immunization: >5 Years Medications and Allergies Allergies Allergy/AdvReac Type Severity Reaction Status Date / Time No Known Allergies Allergy Verified 11/23/17 14:20 Active Medications: Active Medications Acetaminophen (Tylenol) 650 mg PO Q4H PRN PRN Reason: Temp > 100.4 Al Hydroxide/Mg Hydroxide (Milk Of Magnflavio Liq) 30 ml PO Q12H PRN PRN Reason: Mild Constipation Atorvastatin Calcium (Lipitor) 40 mg PO HS CHARLIE Bisacodyl (Dulcolax Supp) 10 mg RECTAL DAILY PRN PRN Reason: SEVERE CONSITIPATION Carvedilol (Coreg) 12.5 mg PO BID CHARLIE Furosemide (Lasix Inj) 40 mg IV.PUSH DAILY CHARLIE Heparin Sodium (Porcine) (Heparin Inj) 5,000 units SQ Q12H CHARLIE Lactulose (Lactulose Liq) 30 ml PO DAILY PRN PRN Reason: SEVERE CONSITIPATION Methylprednisolone Sodium Succinate (Solumedrol Inj) 40 mg IV.PUSH Q12HR CHARLIE Non-Formulary Medication (Clindamycin Hcl [Clindamycin Hcl]) 300 mg PO Q6HR CHARLIE Non-Formulary Medication (Lisinopril [Lisinopril]) 40 mg PO DAILY CHARLIE Ondansetron HCl (Zofran Inj) 4 mg IV.PUSH Q6H PRN PRN Reason: NAUSEA OR VOMITING Senna/Docusate Sodium (Elinor-Colace) 1 tab PO BID [facility] Sennosides (Senokot) 17.2 mg PO Q12H PRN PRN Reason: Moderate Constipation Sodium Chloride (Ns Flush) 2 ml IV.FLUSH BID CHARLIE Sodium Chloride (Ns Flush) 2 ml IV.FLUSH PRN PRN PRN Reason: FLUSH AFTER USING IV ACCESS Physical Exam Vital signs: Vital Signs 04/25/18 13:45 04/25/18 15:37 04/25/18 15:38 Temperature 97.5 F L Pulse Rate 104 H 90 Respiratory Rate 20 Blood Pressure 179/114 H Pulse Oximetry 91 L 98 98 04/25/18 15:40 04/25/18 15:56 04/25/18 15:57 Temperature Pulse Rate 88 97 H Respiratory Rate 26 H 20 Blood Pressure 178/122 H Pulse Oximetry 98 97 Intake & Output 04/24/18 04/25/18 04/25/18 18:59 06:59 18:59 Output Total 400 / 400 Balance -400 / -400 Weight 74.843 kg Output: Urine 400 / 400 Other: # Voids 1 Narrative: GENERAL: Well-nourished, well-developed adult male in no obvious distress. SKIN: Warm and dry. HEAD: Atraumatic. Normocephalic. CARDIOVASCULAR: Regular rate and rhythm. RESPIRATORY:+ accessory muscle use. Coarse with bilateral expiratory wheeze. Breath sounds equal bilaterally. GASTROINTESTINAL: Abdomen rounded, obese, soft, non-tender, non-distended. Positive bowel sounds. MUSCULOSKELETAL: Bilateral lower leg edema + 1 to knee. Generalized erythema. no obvious deformities. NEUROLOGICAL: Drowsy. Oriented to self and location. No obvious cranial nerve deficits. Motor grossly within normal limits. Normal speech. Results Labs CBC & Chem 7: 04/25/18 15:45 04/25/18 15:45 Imaging Impressions Chest X-Ray 04/25/18 15:20 CONCLUSION: No appreciable change. Caprini VTE Risk Assessment Caprini VTE Risk Assessment: Moderate/High Risk (score >= 2) Caprini Risk Assessment Model: Point Value = 1 Point Value = 2 Point Value = 3 Point Value = 5 Age 41-60 Minor surgery BMI > 25 kg/m2 Swollen legs Varicose veins or History of unexplained or recurrent spontaneous Oral contraceptives or hormone replacement Sepsis (< 1 month) Serious lung disease, including pneumonia (< 1 month) Abnormal pulmonary function Acute myocardial infarction Congestive heart failure (< 1 month) History of inflammatory bowel disease Medical patient at bed rest Age 61-74 Arthroscopic surgery Major open surgery (> 45 min) Laparoscopic surgery (> 45 min) Malignancy Confined to bed (> 72 hours) Immobilizing plaster cast Central venous access Age >= 75 History of VTE Family history of VTE Factor V Leiden Prothrombin [id number] Lupus anticoagulant Anticardiolipin antibodies Elevated serum homocysteine Heparin-induced thrombocytopenia Other congenital or acquired thrombophilia Stroke (< 1 month) Elective arthroplasty Hip, pelvis, or leg fracture Acute spinal cord injury (< 1 month) Prophylaxis Regimen: Total Risk Factor Score Risk Level Prophylaxis Regimen 0-1 Low Early ambulation 2 Moderate Order ONE of the following: *Sequential Compression Device (SCD) *Heparin 5000 units SQ BID 3-4 Higher Order ONE of the following medications: *Heparin 5000 units SQ TID *Enoxaparin/Lovenox 40 mg SQ daily (WT < 150 kg, CrCl > 30 mL/min) *Enoxaparin/Lovenox 30 mg SQ daily (WT < 150 kg, CrCl > 10-29 mL/min) *Enoxaparin/Lovenox 30 mg SQ BID (WT < 150 kg, CrCl > 30 mL/min) AND/OR *Sequential Compression Device (SCD) 5 or more Highest Order ONE of the following medications: *Heparin 5000 units SQ TID (Preferred with Epidurals) *Enoxaparin/Lovenox 40 mg SQ daily (WT < 150 kg, CrCl > 30 mL/min) *Enoxaparin/Lovenox 30 mg SQ daily (WT < 150 kg, CrCl > 10-29 mL/min) *Enoxaparin/Lovenox 30 mg SQ BID (WT < 150 kg, CrCl > 30 mL/min) AND *Sequential Compression Device (SCD) Assessment and Plan Plan Was admitted 12/02 forPatient is a 57-year-old male with a past medical history of CHF, COPD, hypertension and tobacco abuse who admits to the emergency room for evaluation of worsening shortness of breath and cough productive of yellow sputum. CHF, COPD exacerbation -Echo done 12/02 EF 45-50%; BMP 539 at admit -CTA ordered -Duo nebs, Solu-Medrol and Lasix ordered -Chest x-ray not concerning Somnolence -ABGs ordered -may need transfer to intensive care unit for closer observation and BiPAP; will stay under [facility]PAS care for now -Titrate O2 to maintain sats 88-96% Fluid overload; bilateral lower leg edema -Diuretics, monitor renal function Hypertension; uncontrolled -Patient given Vasotec in the ED with little response; hydralazine not available due to shortage; will do clonidine. Consider adding Nitropaste if not responsive to clonidine. -Restart home meds Tobacco abuse -Will encourage cessation -Noted to be wearing nicotine patch at admit, continue DVT prophylaxis: Heparin Discharge planning: To be determined. PT ordered for evaluation to determine need for rehab Discussed with: ED nurse, Dr. Nieto
[2018-04-25 18:15] LABS: ABG Base Excess 11.9 mmol/L (-2-2); ABG PCO2 69 mmHg (38-42); ABG PO2 60 mmHg (61-120)
[2018-04-25] MEDS: Heparin - SQ 10,000 UNITS/ML Vial SQ SCH (18:34)
[2018-04-25] MEDS ORDERED: LORazepam 1 MG Tablet PO PRN (18:56)
[2018-04-25] MEDS ORDERED: Haloperidol Inj 5 MG/ML Ampul IV.PUSH PRN (18:56)
--- NOTE | 2018-04-25 19:29 | CT ---
EXAM DATE: 04/25/2018 7:23 PM EST AGE/SEX: 57 years / Male INDICATIONS: Shortness of breath. Embolism. CLINICAL DATA: This is the patient's initial encounter. Patient reports that signs and symptoms have been present for 1 day and indicates a pain score of 0/10. MEDICAL/SURGICAL HISTORY: Congestive heart failure. Chronic obstructive pulmonary disease. Hyperp arathyroidism. None. RADIATION DOSE: 9.36 CTDI (mGy) COMPARISON: [facility], CTA PULMONARY W CONTRAST W 3D, 11/24/2017. . TECHNIQUE: Volumetric scanning was performed using a multi-row detector CT scanner during bolus infu jean-claude of 65 ml Omnipaque 350 (iohexol) nonionic water-soluble contrast as a single exam dose. The anais a was post processed with a variety of visualization algorithms including full volume maximum intensi ty projection and sliding thin slab reformation. Using automated exposure control and adjustment of t he mA and/or kV according to patient size, radiation dose was kept as low as reasonably achievable to obtain optimal diagnostic quality images. DICOM format image data is available electronically for r eview and comparison. FINDINGS: Pulmonary Arteries: No filling defects are seen in the pulmonary arteries out to the subsegmental ve ssels. The left and right pulmonary arteries are normal in diameter. Lung: Minimal scattered subpleural bleb formation is noted bilaterally. No focal infiltrate or vascu lar congestion is noted. No pulmonary nodule or mass is noted. Effusion: None. Mediastinum: Marked cardiomegaly is noted. Coronary artery calcifications are noted. No evidence of m ediastinal or hilar adenopathy. Other: The axilla is unremarkable. CONCLUSION: 1. This study is negative for pulmonary embolism. 2. Marked cardiomegaly with coronary artery calcifications. 3. Minimal scattered subpleural bleb formation bilaterally. Electronically signed by: Black Cabrera MD Board Certified Radiologist 04/25/2018 7:27 PM EST
[2018-04-25] MEDS ORDERED: MethylPREDNISolone Sod Succinate Inj 40 MG/ML Vial IV.PUSH SCH (21:00)
[2018-04-25 21:11] LABS: ABG Base Excess 11.7 mmol/L (-2-2); ABG PCO2 87 mmHg (38-42); ABG PO2 75 mmHg (61-120)
[2018-04-25] MEDS: Senna/Docusate Sodium 8.6/50 MG Tablet PO SCH (22:53)
[2018-04-25] MEDS: Carvedilol 12.5 MG Tablet PO SCH (22:53)
[2018-04-25] MEDS: amLODIPine 5 MG Tablet PO SCH (22:53)
[2018-04-25] MEDS: MethylPREDNISolone Sod Succinate Inj 40 MG/ML Vial IV.PUSH SCH (22:54)
[2018-04-26 00:03] LABS: Thyroid Stimulating Hormone 0.576 uIU/mL (0.358-3.740); Troponin I 0.04 ng/mL (0.02-0.05)
[2018-04-26 00:19] LABS: ABG Base Excess 9.9 mmol/L (-2-2); ABG PCO2 84 mmHg (38-42); ABG PO2 80 mmHG (61-120)
[2018-04-26] MEDS: Chlorhexidine Gluconate 2% 1 Pack (2 Cloths) TOPICAL SCH (03:51)
[2018-04-26] MEDS ORDERED: Chlorhexidine Gluconate 2% 1 Pack (2 Cloths) TOPICAL PRN (04:00)
[2018-04-26] MEDS: Heparin - SQ 10,000 UNITS/ML Vial SQ SCH ×2 (05:49→17:44)
[2018-04-26 06:07] LABS: Baso % (Auto) 0.1 % (0.0-2.0); Eos % (Auto) 0.1 % (0.0-4.0); Hematocrit 54.6 % (39.0-51.0); Lymph # (Auto) 0.4 th/mm3 (1.0-4.8); Lymph % (Auto) 6.8 % (9.0-44.0); Mean Corpuscular HGB Conc 32.9 % (32.0-36.0); Mean Corpuscular Hemoglobin 31.7 pg (27.0-34.0); Mean Corpuscular Volume 96.5 fL (80.0-100.0); Mean Platelet Volume 7.2 fL (7.0-11.0); Mono # (Auto) 0.1 th/mm3 (0.0-0.9); Mono % (Auto) 2.2 % (0.0-8.0); Neut # (Auto) 4.7 th/mm3 (1.8-7.7); Neut % (Auto) 90.8 % (16.0-70.0); Platelet Count 166 th/mm3 (150-450); Red Blood Count 5.66 mil/mm3 (4.50-5.90); Red Cell Distribution Width 13.6 % (11.6-17.2); White Blood Count 5.2 th/mm3 (4.0-11.0)
[2018-04-26 06:36] LABS: Anion Gap 6 meq/L (5-15); Blood Urea Nitrogen 11 mg/dL (7-18); Calcium 9.5 mg/dL (8.5-10.1); Carbon Dioxide 38.9 meq/L (21.0-32.0); Chloride 86 meq/L (98-107); Glomerular Filtration Rate Greater Than 89 mL/min (>89); Glucose,Random 147 mg/dL (74-106); Potassium 4.1 meq/L (3.5-5.1); Sodium 131 meq/L (136-145)
[2018-04-26 06:41] LABS: Troponin I 0.02 ng/mL (0.02-0.05)
[2018-04-26] MEDS: Lisinopril 20 MG Tablet PO SCH (09:58)
[2018-04-26] MEDS: MethylPREDNISolone Sod Succinate Inj 40 MG/ML Vial IV.PUSH SCH ×2 (09:59→20:04)
[2018-04-26] MEDS: Senna/Docusate Sodium 8.6/50 MG Tablet PO SCH ×2 (09:59→20:04)
[2018-04-26] MEDS: Carvedilol 12.5 MG Tablet PO SCH ×2 (09:59→20:02)
[2018-04-26] MEDS: amLODIPine 5 MG Tablet PO SCH (09:59)
--- NOTE | 2018-04-26 10:59 | P.PNIM ---
Subjective Interval history: The patient was in restraints. He said he might be withdrawing a little bit. He requested to have the restraints removed. He said he would be willing to wear the BiPAP if needed. He said his breathing was fair. Discussed with nursing. Physical Exam Vital signs: Vital Signs 04/25/18 13:45 04/25/18 15:37 04/25/18 15:38 Temperature 97.5 F L Pulse Rate 104 H 90 Respiratory Rate 20 Blood Pressure 179/114 H Pulse Oximetry 91 L 98 98 04/25/18 15:40 04/25/18 15:56 04/25/18 15:57 Temperature Pulse Rate 88 97 H Respiratory Rate 26 H 20 Blood Pressure 178/122 H Pulse Oximetry 98 97 04/25/18 18:33 04/25/18 19:40 04/25/18 19:41 Temperature Pulse Rate 97 H 89 Respiratory Rate 24 24 Blood Pressure 155/114 H 157/119 H Pulse Oximetry 96 96 96 04/25/18 20:00 04/25/18 20:04 04/25/18 21:50 Temperature Pulse Rate Respiratory Rate Blood Pressure Pulse Oximetry 94 L 95 92 L 04/25/18 22:00 04/25/18 22:20 04/25/18 22:24 Temperature Pulse Rate 75 99 H 95 H Respiratory Rate 14 25 H 20 Blood Pressure 133/88 170/114 H Pulse Oximetry 95 89 L 87 L 04/25/18 22:45 04/25/18 23:00 04/25/18 23:14 Temperature 96.4 F L Pulse Rate 79 79 Respiratory Rate 10 L 10 L Blood Pressure 141/92 H 141/92 H Pulse Oximetry 94 L 92 L 92 L 04/26/18 00:00 04/26/18 01:00 04/26/18 02:00 Temperature 97.3 F L Pulse Rate 83 79 79 Respiratory Rate 16 13 15 Blood Pressure Pulse Oximetry 85 L 95 95 04/26/18 03:00 04/26/18 03:16 04/26/18 04:00 Temperature 96.6 F L Pulse Rate 77 75 92 H Respiratory Rate 16 15 27 H Blood Pressure 134/85 Pulse Oximetry 92 L 93 L 84 L 04/26/18 05:00 04/26/18 06:00 04/26/18 08:21 Temperature Pulse Rate 79 85 Respiratory Rate 15 Blood Pressure Pulse Oximetry 93 L 93 L Intake & Output 04/25/18 04/26/18 04/26/18 18:59 06:59 18:59 Intake Total 400 / 400 Output Total 800 / 800 Balance -800 / -800 400 / 400 Weight 74.843 kg 79 kg Intake: Oral 400 / 400 Output: Urine 800 / 800 Other: # Voids 1 0 # Bowel Movements 0 Weight On Admission 79 kg Narrative: GENERAL: Well-nourished, well-developed adult male in no obvious distress. SKIN: Warm and dry. HEAD: Atraumatic. Normocephalic. CARDIOVASCULAR: Regular rate and rhythm. RESPIRATORY:+ accessory muscle use. Coarse with bilateral expiratory wheezes. GASTROINTESTINAL: Abdomen rounded, obese, soft, non-tender, non-distended. Positive bowel sounds. MUSCULOSKELETAL: Bilateral lower leg edema +1 to knee. No obvious deformities. NEUROLOGICAL: More alert. Speech is improved. No obvious cranial nerve deficits. Motor grossly within normal limits. Results Labs CBC & Chem 7: 04/26/18 05:12 04/26/18 05:12 Imaging Imaging: Impressions Chest CTA 04/25/18 00:00 CONCLUSION: 1. This study is negative for pulmonary embolism. 2. Marked cardiomegaly with coronary artery calcifications. 3. Minimal scattered subpleural bleb formation bilaterally. Chest X-Ray 04/25/18 15:20 CONCLUSION: No appreciable change. Assessment and Plan Plan Acute hypercarbic respiratory failure Pt appears to have a COPD exacerbation with ABG revealing elevated CO2 levels. Echo done 12/02 EF 45-50%; BNP 539 at admit. CTA negative for PE. -Duo nebs, Solu-Medrol and Lasix ordered. -BiPAP as tolerated. Highflow also ordered. -incentive spirometry. -continue Lasix for now. Alcohol withdrawal Pt appears to be withdrawing. -CIWA protocol. -restraints as needed. -cessation instruction. Hypertension Improved. -Restart home meds. Added amlodipine. -Vasotec as needed. Weakness PT recommends SNF placement. -case management consult requested. Tobacco abuse Ongoing. -smoking cessation instruction. -nicotine patch. DVT prophylaxis: Heparin Progress Note: Quality VTE Deep Vein Thrombosis/Pulmonary Embolism Present on Admission: No
[2018-04-27] MEDS: Acetaminophen 325 MG Tablet PO PRN ×2 (02:40→20:13)
[2018-04-27] MEDS: Chlorhexidine Gluconate 2% 1 Pack (2 Cloths) TOPICAL SCH (06:12)
[2018-04-27] MEDS: Heparin - SQ 10,000 UNITS/ML Vial SQ SCH ×2 (06:16→17:03)
[2018-04-27 06:32] LABS: Hematocrit 53.2 % (39.0-51.0); Hemoglobin 17.1 gm/dL (13.0-17.0); Mean Corpuscular HGB Conc 32.2 % (32.0-36.0); Mean Corpuscular Hemoglobin 31.4 pg (27.0-34.0); Mean Corpuscular Volume 97.5 fL (80.0-100.0); Mean Platelet Volume 7.6 fL (7.0-11.0); Platelet Count 201 th/mm3 (150-450); Red Blood Count 5.45 mil/mm3 (4.50-5.90); Red Cell Distribution Width 13.6 % (11.6-17.2); White Blood Count 15.8 th/mm3 (4.0-11.0)
[2018-04-27 07:21] LABS: Alanine Aminotransferase 20 U/L (12-78)
[2018-04-27 07:22] LABS: Albumin 2.8 g/dL (3.4-5.0); Anion Gap 7 meq/L (5-15); Aspartate Aminotransferase 31 U/L (15-37); Blood Urea Nitrogen 18 mg/dL (7-18); Calcium 9.4 mg/dL (8.5-10.1); Carbon Dioxide 37.4 meq/L (21.0-32.0); Chloride 89 meq/L (98-107); Glomerular Filtration Rate Greater Than 89 mL/min (>89); Glucose,Random 198 mg/dL (74-106); Potassium 4.3 meq/L (3.5-5.1); Sodium 133 meq/L (136-145)
[2018-04-27 07:23] LABS: Alkaline Phosphatase 98 U/L (45-117); Total Protein 6.5 g/dL (6.4-8.2)
[2018-04-27] MEDS: Senna/Docusate Sodium 8.6/50 MG Tablet PO SCH ×2 (08:42→20:13)
[2018-04-27] MEDS: MethylPREDNISolone Sod Succinate Inj 40 MG/ML Vial IV.PUSH SCH ×2 (08:42→20:06)
[2018-04-27] MEDS: Lisinopril 20 MG Tablet PO SCH (08:42)
[2018-04-27] MEDS: Carvedilol 12.5 MG Tablet PO SCH ×2 (08:42→20:06)
[2018-04-27] MEDS: amLODIPine 5 MG Tablet PO SCH (08:42)
--- NOTE | 2018-04-27 09:28 | P.PNIM ---
Subjective Interval history: The patient was eating breakfast. He denied any pain. He has been out of restraints. Discussed with nursing at the bedside. Physical Exam Vital signs: Vital Signs 04/26/18 10:00 04/26/18 10:59 04/26/18 11:00 Temperature Pulse Rate 89 79 76 Respiratory Rate 17 13 16 Blood Pressure 139/88 Pulse Oximetry 94 L 93 L 90 L 04/26/18 12:00 04/26/18 13:00 04/26/18 14:00 Temperature Pulse Rate 81 84 89 Respiratory Rate 15 24 16 Blood Pressure Pulse Oximetry 89 L 90 L 92 L 04/26/18 15:00 04/26/18 16:00 04/26/18 16:29 Temperature 98.8 F Pulse Rate 87 92 H 90 Respiratory Rate 15 24 27 H Blood Pressure 126/85 Pulse Oximetry 93 L 90 L 88 L 04/26/18 17:00 04/26/18 18:00 04/26/18 19:00 Temperature Pulse Rate 93 H 97 H 94 H Respiratory Rate 21 25 H 21 Blood Pressure Pulse Oximetry 92 L 93 L 90 L 04/26/18 19:44 04/26/18 20:00 04/26/18 20:51 Temperature 97.6 F Pulse Rate 96 H 90 89 Respiratory Rate 22 17 13 Blood Pressure 165/94 H Pulse Oximetry 91 L 90 L 85 L 04/26/18 21:00 04/26/18 21:37 04/26/18 21:48 Temperature Pulse Rate 89 89 Respiratory Rate 18 12 Blood Pressure Pulse Oximetry 86 L 92 L 04/26/18 22:00 04/26/18 23:00 04/26/18 23:23 Temperature Pulse Rate 99 H 80 Respiratory Rate 11 L 14 Blood Pressure Pulse Oximetry 85 L 91 L 93 L 04/27/18 00:00 04/27/18 00:54 04/27/18 01:00 Temperature 96.4 F L Pulse Rate 79 87 88 Respiratory Rate 13 19 32 H Blood Pressure 131/88 Pulse Oximetry 91 L 88 L 92 L 04/27/18 02:00 04/27/18 03:00 04/27/18 04:00 Temperature 97.6 F Pulse Rate 83 85 90 Respiratory Rate 14 14 20 Blood Pressure Pulse Oximetry 91 L 93 L 90 L 04/27/18 04:03 04/27/18 05:00 04/27/18 05:19 Temperature Pulse Rate 88 92 H 79 Respiratory Rate 14 38 H 12 Blood Pressure 140/88 Pulse Oximetry 92 L 93 L 04/27/18 06:00 04/27/18 06:11 04/27/18 07:00 Temperature Pulse Rate 87 88 Respiratory Rate 11 L 16 9 L Blood Pressure Pulse Oximetry 92 L 96 04/27/18 09:14 Temperature Pulse Rate 87 Respiratory Rate 24 Blood Pressure Pulse Oximetry 93 L Intake & Output 04/26/18 04/27/18 04/27/18 18:59 06:59 18:59 Intake Total 900 / 900 240 / 240 Output Total 900 / 900 350 / 350 Balance 0 / 0 -110 / -110 Intake: Oral 900 / 900 240 / 240 Output: Urine 900 / 900 350 / 350 Other: # Voids 0 # Bowel Movements 0 0 Narrative: GENERAL: Well-nourished, well-developed male in no obvious distress. SKIN: Warm and dry. HEAD: Atraumatic. Normocephalic. CARDIOVASCULAR: Regular rate and rhythm. RESPIRATORY:+ accessory muscle use. Decreased breath sounds. No wheezing. GASTROINTESTINAL: Abdomen rounded, obese, soft, non-tender, non-distended. Positive bowel sounds. MUSCULOSKELETAL: Bilateral lower leg edema +1 to knee. No obvious deformities. NEUROLOGICAL: More alert. Speech is improved. No obvious cranial nerve deficits. Motor grossly within normal limits. Results Labs CBC & Chem 7: 04/27/18 05:13 04/27/18 05:13 Assessment and Plan Plan Acute hypercarbic respiratory failure Pt appears to have a COPD exacerbation with ABG revealing elevated CO2 levels. Echo done 12/02 EF 45-50%; BNP 539 at admit. CTA negative for PE. -continue Duo nebs, Solu-Medrol and Lasix. -continue oxygen. -incentive spirometry. Alcohol withdrawal Pt appears to be withdrawing. Has improved, mildly shaky. -continue CIWA protocol. -restraints as needed. Not currently requiring. -cessation instruction. Hypertension Improved. -Restart home meds. Added amlodipine. -Vasotec as needed. Weakness PT recommends SNF placement. -case management consult requested. Tobacco abuse Ongoing. -smoking cessation instruction. -nicotine patch. DVT prophylaxis: Heparin Discharge Planning: Transfer to the floor Progress Note: Quality VTE Deep Vein Thrombosis/Pulmonary Embolism Present on Admission: No
[2018-04-28] MEDS: Chlorhexidine Gluconate 2% 1 Pack (2 Cloths) TOPICAL SCH (04:24)
[2018-04-28] MEDS: Heparin - SQ 10,000 UNITS/ML Vial SQ SCH ×2 (05:54→18:58)
[2018-04-28] MEDS: Acetaminophen 325 MG Tablet PO PRN (05:54)
[2018-04-28] MEDS: MethylPREDNISolone Sod Succinate Inj 40 MG/ML Vial IV.PUSH SCH ×2 (08:33→22:07)
[2018-04-28] MEDS: Senna/Docusate Sodium 8.6/50 MG Tablet PO SCH ×2 (08:33→22:07)
[2018-04-28] MEDS: Furosemide 40 MG Tablet PO SCH (08:33)
[2018-04-28] MEDS: Lisinopril 20 MG Tablet PO SCH (08:35)
[2018-04-28] MEDS: amLODIPine 5 MG Tablet PO SCH (08:36)
[2018-04-28] MEDS: Carvedilol 12.5 MG Tablet PO SCH ×2 (08:36→22:08)
--- NOTE | 2018-04-28 08:56 | XR ---
EXAM DATE: 04/28/2018 8:52 AM EST AGE/SEX: 57 years / Male INDICATIONS: Difficulty breathing. CLINICAL DATA: This is the patient's subsequent encounter. Patient reports that signs and symptoms h ave been present for 4 - 6 days and indicates a pain score of 0/10. MEDICAL/SURGICAL HISTORY: None. None. [place] [facility] [place] [facility] [place], [place] [facility] [place] W 3D[place]. . FINDINGS: Single AP upright portable view of the chest demonstrates moderate cardiomegaly, stable from prior ex ams. Pulmonary vasculature is normal in caliber. Lungs are clear. CONCLUSION: Stable cardiomegaly. No radiographic evidence of congestive heart failure. No parenchymal abnormality . Electronically signed by: Lora Meade MD Board Certified Radiologist 04/28/2018 8:55 AM EST
--- NOTE | 2018-04-28 09:26 | P.PNIM ---
Subjective Interval history: The patient was standing up. He said that he wanted to walk around more. He was hopeful to transfer out of the intensive care unit soon. He has not had a bowel movement yet. He said that his legs are less swollen. He does not feel shaky. Discussed with nursing at the bedside. Physical Exam Vital signs: Vital Signs 04/27/18 09:32 04/27/18 09:36 04/27/18 10:00 Temperature Pulse Rate 92 H 90 80 Respiratory Rate 27 H 19 13 Blood Pressure 147/110 H 132/80 Pulse Oximetry 85 L 88 L 84 L 04/27/18 11:00 04/27/18 12:00 04/27/18 13:00 Temperature Pulse Rate 77 79 90 Respiratory Rate 12 13 29 H Blood Pressure Pulse Oximetry 94 L 94 L 94 L 04/27/18 13:44 04/27/18 14:00 04/27/18 15:00 Temperature 97.6 F Pulse Rate 86 81 89 Respiratory Rate 19 15 16 Blood Pressure 122/73 Pulse Oximetry 94 L 95 92 L 04/27/18 15:20 04/27/18 16:00 04/27/18 20:00 Temperature 98.5 F Pulse Rate 87 81 86 Respiratory Rate 16 16 19 Blood Pressure 148/86 H Pulse Oximetry 95 94 L 04/27/18 20:12 04/27/18 20:54 04/27/18 21:11 Temperature Pulse Rate 86 Respiratory Rate 22 Blood Pressure Pulse Oximetry 93 L 94 L 04/28/18 00:00 04/28/18 04:00 04/28/18 04:15 Temperature 98.0 F 98.0 F Pulse Rate 87 88 88 Respiratory Rate 14 11 L 15 Blood Pressure 152/89 H 156/90 H Pulse Oximetry 90 L 96 Intake & Output 04/27/18 04/28/18 04/28/18 18:59 06:59 18:59 Intake Total 650 / 650 240 / 240 Output Total 1200 / 1200 300 / 300 Balance -550 / -550 -60 / -60 Weight 78 kg Intake: Oral 650 / 650 240 / 240 Output: Urine 1200 / 1200 300 / 300 Other: # Bowel Movements 0 Narrative: GENERAL: Well-nourished, well-developed male in no obvious distress. SKIN: Warm and dry. HEAD: Atraumatic. Normocephalic. CARDIOVASCULAR: Regular rate and rhythm. RESPIRATORY:+ accessory muscle use. Decreased breath sounds. No wheezing. GASTROINTESTINAL: Abdomen rounded, obese, soft, non-tender, non-distended. Positive bowel sounds. MUSCULOSKELETAL: Trace edema. No obvious deformities. NEUROLOGICAL: More alert. Speech is improved. No obvious cranial nerve deficits. Motor grossly within normal limits. Results Labs CBC & Chem 7: 04/27/18 05:13 04/27/18 05:13 Imaging Imaging: Impressions Chest X-Ray 04/28/18 08:30 CONCLUSION: Stable cardiomegaly. No radiographic evidence of congestive heart failure. No parenchymal abnormality. Assessment and Plan Plan Acute hypercarbic respiratory failure Pt appears to have a COPD exacerbation with ABG revealing elevated CO2 levels. Echo done 12/02 EF 45-50%; BNP 539 at admit. CTA negative for PE. -continue Duo nebs, Solu-Medrol and Lasix. -continue oxygen. -incentive spirometry. -encourage ambulation. -will need a walk test prior to discharge. Alcohol withdrawal Pt appears to be withdrawing. Has improved. -continue CIWA protocol. -restraints as needed. Not currently requiring. -cessation instruction. Hypertension Improved. -Restart home meds. Added amlodipine. -Vasotec as needed. Weakness PT recommends SNF placement. -case management consult requested. Tobacco abuse Ongoing. -smoking cessation instruction. -nicotine patch. DVT prophylaxis: Heparin Discharge Planning: Transfer to the floor Progress Note: Quality VTE Deep Vein Thrombosis/Pulmonary Embolism Present on Admission: No
[2018-04-28] MEDS: Polyethylene Glycol 3350 17 GM Packet PO SCH (09:30)
[2018-04-28] MEDS ORDERED: amLODIPine 5 MG Tablet PO ONE (15:08)
[2018-04-29] MEDS: Chlorhexidine Gluconate 2% 1 Pack (2 Cloths) TOPICAL SCH (05:26)
[2018-04-29] MEDS: Heparin - SQ 10,000 UNITS/ML Vial SQ SCH ×2 (05:26→17:08)
[2018-04-29] MEDS: Furosemide 40 MG Tablet PO SCH (09:10)
[2018-04-29] MEDS: amLODIPine 10 MG Tablet PO SCH (09:10)
[2018-04-29] MEDS: Lisinopril 20 MG Tablet PO SCH (09:10)
[2018-04-29] MEDS: Polyethylene Glycol 3350 17 GM Packet PO SCH (09:10)
[2018-04-29] MEDS: Senna/Docusate Sodium 8.6/50 MG Tablet PO SCH ×2 (09:10→21:29)
[2018-04-29] MEDS: Carvedilol 12.5 MG Tablet PO SCH ×2 (09:10→21:29)
[2018-04-29] MEDS: MethylPREDNISolone Sod Succinate Inj 40 MG/ML Vial IV.PUSH SCH ×2 (09:22→21:32)
[2018-04-29] MEDS ORDERED: Azithromycin 250 MG Tablet PO ONE (14:50)
--- NOTE | 2018-04-29 14:58 | P.PNIM ---
Subjective Interval history: Patient laying down in bed. He says he still feels occasional shortness of breath when he gets up and attempts to move around. Physical Exam Vital signs: Vital Signs 04/28/18 15:00 04/28/18 16:00 04/28/18 20:00 Temperature 98.4 F 98.9 F Pulse Rate 82 82 103 H Respiratory Rate 14 14 22 Blood Pressure 172/101 H 171/82 H Pulse Oximetry 92 L 92 L 04/29/18 00:00 04/29/18 03:20 04/29/18 03:21 Temperature 97.8 F Pulse Rate 82 88 Respiratory Rate 17 18 Blood Pressure 164/96 H Pulse Oximetry 94 L 96 04/29/18 04:00 04/29/18 06:15 04/29/18 08:00 Temperature 98.1 F 98.0 F Pulse Rate 92 H 90 87 Respiratory Rate 17 18 Blood Pressure 150/78 H 160/92 H Pulse Oximetry 95 94 L 04/29/18 09:18 04/29/18 12:00 Temperature 97.8 F Pulse Rate 85 80 Respiratory Rate 16 18 Blood Pressure Pulse Oximetry 92 L Intake & Output 04/28/18 04/29/18 04/29/18 18:59 06:59 18:59 Intake Total 800 / 800 Output Total 3800 / 3800 Balance -3000 / -3000 Weight 77.1 kg 77.5 kg Intake: Oral 800 / 800 Output: Urine 3800 / 3800 Other: # Voids 2 Narrative: General patient in no acute distress HEENT extraocular movements are intact, clear oropharyngeal mucosa, no JVD Cardiovascular S1-S2 audible, RRR, no murmurs rubs or gallops Respiratory wheezing bilaterally Abdomen soft, nontender, nondistended, normal bowel sounds Extremities no edema 2+ distal pulses in bilateral upper and lower extremities Neuro cranial nerves II through XII intact Results - Labs CBC & Chem 7: 04/27/18 05:13 04/27/18 05:13 Assessment and Plan - Plan This patient is a 57-year-old male with a diagnosis of COPD, hypertension, dyslipidemia. The patient presented to the emergency department with complaints of feeling weak and shortness of breath. He was subsequently found to be hypoxic and hypercapnic. The patient was subsequently admitted. 1. Acute hypoxic hypercapnic respiratory failure secondary to COPD exacerbation Patient presented with the symptoms mentioned above. Still has some wheezing on examination. Chest imaging showed findings consistent with COPD, no PE. ABG showed hypoxia and hypercapnia. Patient was started on breathing treatments [id number], steroids. Azithromycin will be added. Continue current management, will start to transition pt to po steroids tomorrow. Keep O2 saturation above 92%. Leukocytosis likely secondary to steroid use. 2. Alcohol withdrawals No current signs of alcohol withdrawal Continue CIWA protocol 3. Hypertension Continue amlodipine, Coreg, lisinopril, Hydralazine will be added to the patient's blood pressure medication regimen. 4. Dyslipidemia Continue statin Heparin for DVT prophylaxis. Discharge planning: pt likely to be discharged tomorrow am.
[2018-04-29] MEDS: hydrALAZINE 25 MG Tablet PO SCH (17:07)
[2018-04-30] MEDS: Chlorhexidine Gluconate 2% 1 Pack (2 Cloths) TOPICAL SCH (04:41)
[2018-04-30] MEDS: Heparin - SQ 10,000 UNITS/ML Vial SQ SCH ×2 (05:57→17:44)
[2018-04-30] MEDS: hydrALAZINE 25 MG Tablet PO SCH ×3 (09:31→17:45)
[2018-04-30] MEDS: Azithromycin 250 MG Tablet PO SCH (09:31)
[2018-04-30] MEDS: Furosemide 40 MG Tablet PO SCH (09:31)
[2018-04-30] MEDS: MethylPREDNISolone Sod Succinate Inj 40 MG/ML Vial IV.PUSH SCH ×2 (09:31→21:11)
[2018-04-30] MEDS: amLODIPine 10 MG Tablet PO SCH (09:31)
[2018-04-30] MEDS: Senna/Docusate Sodium 8.6/50 MG Tablet PO SCH ×2 (09:31→21:09)
[2018-04-30] MEDS: Carvedilol 12.5 MG Tablet PO SCH ×2 (09:31→21:10)
[2018-04-30] MEDS: Lisinopril 20 MG Tablet PO SCH (09:32)
[2018-04-30] MEDS: Polyethylene Glycol 3350 17 GM Packet PO SCH (09:32)
--- NOTE | 2018-04-30 10:27 | P.DS ---
Date of admission: 04/25/18 18:24 Primary care physician: No Primary Care Physician Brief History from admission: This patient is a 57-year-old male with a diagnosis of COPD, hypertension, dyslipidemia. The patient presented to the emergency department with complaints of feeling weak and shortness of breath. He was subsequently found to be hypoxic and hypercapnic. The patient was subsequently admitted. DS: Medications - Discharge Medications Prescriptions: albuterol sulfate [Proventil HFA] 2 puff INHALATION Q4H PRN #1 inhaler PRN Reason: Shortness Of Breath Or Wheezing amlodipine [Norvasc] 10 mg PO DAILY #30 tab azithromycin 250 mg PO DAILY #4 tab budesonide-formoterol 2 puff INHALATION Q12H #1 inhaler hydralazine 50 mg PO TID #90 tab prednisone 10 mg PO DAILY #17 tab DS: Summary Hospital Course: This patient is a 57-year-old male with a diagnosis of COPD, hypertension, dyslipidemia. The patient presented to the emergency department with complaints of feeling weak and shortness of breath. He was subsequently found to be hypoxic and hypercapnic. The patient was subsequently admitted. 1. Acute hypoxic hypercapnic respiratory failure secondary to COPD exacerbation Patient presented with the symptoms mentioned above. He was found to be hypoxic and hypercapnic. He was started on tx for copd exacerbation including breathing txs and steroids. Patient had a cta which was negative for PE, did show cardiomegaly. His symptoms have improved over the past few days and he was titrated off of supplemental oxygen. He was given scripts for symbicort and albuterol. He should continue azithromycin for the next few days. All scripts were handed to the patient prior to his discharge. He will follow up with the [facility] in the next couple of weeks. Leukocytosis likely secondary to steroid use. 2. Alcohol withdrawals No signs of alcohol withdrawals. Patient advised to avoid alcohol. 3. Hypertension Continue amlodipine, Coreg, lisinopril, Scripts given to the patient. 4. Dyslipidemia Continue statin 5. Tobacco smoking Approximately 5 minutes was spent counseling the patient is cessation techniques. Understands continuing to smoke could lead to stroke and , worsening of COPD. Benefits of stopping also presented to the patient.Patient says he will stop smoking. Nicotine patch recommended. - Time Spent with Patient Total time spent providing and/or coordinating discharge services: Greater than 30 minutes - Quality: VTE Deep Vein Thrombosis/Pulmonary Embolism Present on Admission: No Exam Vital signs: Vital Signs 04/29/18 12:00 04/29/18 15:48 04/29/18 16:00 Temperature 97.8 F 98.1 F Pulse Rate 81 80 90 Respiratory Rate 18 18 18 Blood Pressure 158/101 H Pulse Oximetry 90 L 04/29/18 20:00 04/29/18 20:06 04/29/18 20:07 Temperature 97.8 F Pulse Rate 88 88 Respiratory Rate 18 19 Blood Pressure 151/90 H Pulse Oximetry 94 L 97 04/30/18 00:00 04/30/18 03:53 04/30/18 04:00 Temperature 97.8 F 98.8 F Pulse Rate 80 91 H 92 H Respiratory Rate 17 15 Blood Pressure 163/98 H 156/88 H Pulse Oximetry 93 L 93 L 04/30/18 08:00 04/30/18 08:25 Temperature 97.8 F Pulse Rate 88 89 Respiratory Rate 18 18 Blood Pressure 153/88 H Pulse Oximetry 92 L 94 L Intake & Output 04/29/18 04/30/18 04/30/18 18:59 06:59 18:59 Intake Total 480 / 480 240 / 240 Output Total 500 / 500 Balance -20 / -20 240 / 240 Weight 76.9 kg Intake: Oral 480 / 480 240 / 240 Output: Urine 500 / 500 Other: # Voids 2 2 Narrative: General patient in no acute distress HEENT extraocular movements are intact, clear oropharyngeal mucosa, no JVD Cardiovascular S1-S2 audible, RRR, no murmurs rubs or gallops Respiratory cta b/l Abdomen soft, nontender, nondistended, normal bowel sounds Extremities no edema 2+ distal pulses in bilateral upper and lower extremities Neuro cranial nerves II through XII intact Results Procedures completed during hospitalization: none - Impressions ITS Impressions Chest CTA 04/25/18 00:00 CONCLUSION: 1. This study is negative for pulmonary embolism. 2. Marked cardiomegaly with coronary artery calcifications. 3. Minimal scattered subpleural bleb formation bilaterally. Chest X-Ray 04/28/18 08:30 CONCLUSION: Stable cardiomegaly. No radiographic evidence of congestive heart failure. No parenchymal abnormality. Discharge Plan - Discharge Disposition Patient Disposition: Discharge Home - Discharge Condition Condition: Stable - Discharge Order Discharge Orders: Discharge Order (Routine); Ordered 04/30/18 Ordered By: Rahul Martinez ED Use Only Admit Order (Routine); Ordered 04/25/18 Ordered By: Casandra Lr - Physicians Team Primary Care Provider: Primary Care Clemencia Molina Attending Provider: Rahul Martinez
[2018-05-01] MEDS: Heparin - SQ 10,000 UNITS/ML Vial SQ SCH ×2 (05:09→18:12)
[2018-05-01] MEDS: Polyethylene Glycol 3350 17 GM Packet PO SCH (08:44)
[2018-05-01] MEDS: hydrALAZINE 25 MG Tablet PO SCH ×3 (08:45→18:12)
[2018-05-01] MEDS: amLODIPine 10 MG Tablet PO SCH (08:45)
[2018-05-01] MEDS: Furosemide 40 MG Tablet PO SCH (08:45)
[2018-05-01] MEDS: MethylPREDNISolone Sod Succinate Inj 40 MG/ML Vial IV.PUSH SCH (08:45)
[2018-05-01] MEDS: Azithromycin 250 MG Tablet PO SCH (08:45)
[2018-05-01] MEDS: Carvedilol 12.5 MG Tablet PO SCH ×2 (08:45→20:43)
[2018-05-01] MEDS: Lisinopril 20 MG Tablet PO SCH (08:45)
[2018-05-01] MEDS: Senna/Docusate Sodium 8.6/50 MG Tablet PO SCH ×2 (08:45→20:43)
--- NOTE | 2018-05-01 10:58 | P.PNIM ---
Subjective Interval history: Follow up for COPD exacerbation. Patient is doing well, currently on nasal cannula. No fever, chills. Physical Exam Vital signs: Vital Signs 04/30/18 12:00 04/30/18 15:41 04/30/18 15:46 Temperature 97.3 F L Pulse Rate 79 89 Respiratory Rate 18 18 Blood Pressure 158/60 H Pulse Oximetry 94 L Pulse Oximetry [Resting on Room Air] 87 L Pulse Oximetry [Resting with Oxygen] 95 04/30/18 16:00 04/30/18 19:45 04/30/18 20:00 Temperature 98.4 F 97.9 F Pulse Rate 93 H 89 Respiratory Rate 18 17 Blood Pressure 147/90 H 164/105 H Pulse Oximetry 95 94 L 93 L Pulse Oximetry [Resting on Room Air] Pulse Oximetry [Resting with Oxygen] 05/01/18 00:00 05/01/18 03:55 05/01/18 04:00 Temperature 98.1 F 97.9 F Pulse Rate 96 H 92 H 94 H Respiratory Rate 15 15 Blood Pressure 168/90 H 155/99 H Pulse Oximetry 95 96 Pulse Oximetry [Resting on Room Air] Pulse Oximetry [Resting with Oxygen] 05/01/18 08:00 05/01/18 10:27 Temperature 98.2 F Pulse Rate 90 89 Respiratory Rate 18 18 Blood Pressure 154/94 H Pulse Oximetry 99 96 Pulse Oximetry [Resting on Room Air] Pulse Oximetry [Resting with Oxygen] Intake & Output 04/30/18 05/01/18 05/01/18 18:59 06:59 18:59 Intake Total 560 / 560 240 / 240 Output Total 1400 / 1400 Balance -840 / -840 240 / 240 Weight 76.3 kg Intake: Oral 560 / 560 240 / 240 Output: Urine 1400 / 1400 Other: # Voids 2 Date of Last Bowel Movement 04/30/18 # Bowel Movements 0 Narrative: General patient in no acute distress HEENT extraocular movements are intact, clear oropharyngeal mucosa, no JVD Cardiovascular S1-S2 audible, RRR, no murmurs rubs or gallops Respiratory : Diffuse coarse breath sound, minor wheezing noted, luke on the right side, moderate air entry. Abdomen soft, nontender, nondistended, normal bowel sounds Extremities no edema 2+ distal pulses in bilateral upper and lower extremities Neuro cranial nerves II through XII intact Results Labs CBC & Chem 7: 01/11/19 05:13 04/27/18 05:13 Procedures Procedures: none Assessment and Plan Plan This patient is a 57-year-old male with a diagnosis of COPD, hypertension, dyslipidemia. The patient presented to the emergency department with complaints of feeling weak and shortness of breath. He was subsequently found to be hypoxic and hypercapnic. The patient was subsequently admitted. 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 -Chest imaging showed findings consistent with COPD, no PE. -ABG showed hypoxia and hypercapnia. -Patient was started on breathing treatments [id number], steroids. -Pt was on Azithromycin, we switched to Levaquin. -Switch IV steroid to PO prednisone. -Keep O2 saturation above 92%. -Leukocytosis likely secondary to steroid use. Alcohol withdrawals -No current signs of alcohol withdrawal -Continue CIWA protocol Hypertension -Continue amlodipine, Coreg, lisinopril, -Hydralazine will be added to the patient's blood pressure medication regimen. Dyslipidemia -Continue statin Full code. Heparin for DVT prophylaxis. Progress Note: Quality VTE Deep Vein Thrombosis/Pulmonary Embolism Present on Admission: No
[2018-05-01] MEDS: levoFLOXacin 750 MG Tablet PO SCH (13:01)
[2018-05-02] MEDS: Heparin - SQ 10,000 UNITS/ML Vial SQ SCH (05:46)
[2018-05-02 07:38] VITALS: RESP 18
[2018-05-02] MEDS: Carvedilol 12.5 MG Tablet PO SCH (08:21)
[2018-05-02] MEDS: Senna/Docusate Sodium 8.6/50 MG Tablet PO SCH (08:21)
[2018-05-02] MEDS: Furosemide 40 MG Tablet PO SCH (08:21)
[2018-05-02] MEDS: hydrALAZINE 25 MG Tablet PO SCH (08:21)
[2018-05-02] MEDS: amLODIPine 10 MG Tablet PO SCH (08:21)
[2018-05-02] MEDS: levoFLOXacin 750 MG Tablet PO SCH (08:22)
[2018-05-02] MEDS: Polyethylene Glycol 3350 17 GM Packet PO SCH (08:22)
[2018-05-02] MEDS: Lisinopril 20 MG Tablet PO SCH (08:23)
[2018-05-02 09:05] VITALS: BP 167/103; TEMP 98.2; O2SAT 95
--- NOTE | 2018-05-02 09:18 | P.HPIM ---
History of Present Illness Primary Care Physician: No Primary Care Physician History of Present Illness: This patient is a 57-year-old male with a diagnosis of COPD, hypertension, dyslipidemia. The patient presented to the emergency department with complaints of feeling weak and shortness of breath. He was subsequently found to be hypoxic and hypercapnic. The patient was subsequently admitted. Inpatient Certification Inpatient Certification: I certify that the inpatient services were ordered in accordance with Medicare regulations governing the order. This includes certification that hospital inpatient services are reasonable and necessary and in the case of services not specified as inpatient-only under 42 CFR 419.22(n), that they are appropriately provided as inpatient services in accordance to with the 2-midnight benchmark under 43 CFR 412.3(e) Estimated Total Length of Stay (Days): 3 Plans for Post Hospital Care: Not yet determined [facility] Medical History Medical History COPD (chronic obstructive pulmonary disease) (Acute) HTN (hypertension) (Acute) Heel spur (Acute) High cholesterol (Acute) Hx of fracture of leg (Acute) Surgical History Surgical History History of surgery on arm (Acute) Hx of foot surgery (Acute) Family History Family History Father HTN (hypertension) Mother HTN (hypertension) Social History Social History Substance History: Active Abuse Second Hand Smoke Exposure: Yes Smoking Status: Current every day smoker Tobacco Type: Cigarettes Packs Per Day: 1 Cigarettes Per Day: 20.0 How Often Do You Have a Drink Containing Alcohol: 4 or more times a week Recent Travel in [facility] within the Last 8 Weeks: No Recent Out of Country Travel within the Last 8 Weeks: No Immunization History Tetanus Immunization: >5 Years Hx Influenza Vaccine This Season: Yes Medications and Allergies Allergies Allergy/AdvReac Type Severity Reaction Status Date / Time No Known Allergies Allergy Verified 11/23/17 14:20 Active Medications: Active Medications Acetaminophen (Tylenol) 650 mg PO Q4H PRN PRN Reason: Temp > 100.4 Last Admin: 04/28/18 05:54 Dose: 650 mg Al Hydroxide/Mg Hydroxide (Milk Of Magnesia Liq) 30 ml PO Q12H PRN PRN Reason: Mild Constipation Last Admin: 04/27/18 08:42 Dose: 30 ml Albuterol (Duoneb Neb (Prn)) 1 ampul NEB Q4HR NEB PRN PRN Reason: DYSPNEA Last Admin: 05/01/18 10:24 Dose: 1 ampul Albuterol (Duoneb Neb (Helga)) 1 ampul NEB Q6HR WHILE AWAKE NEB [facility] Last Admin: 05/02/18 07:37 Dose: 1 ampul Amlodipine Besylate (Norvasc) 10 mg PO DAILY [facility] Last Admin: 05/02/18 08:21 Dose: 10 mg Atorvastatin Calcium (Lipitor) 40 mg PO HS [facility] Last Admin: 05/01/18 20:43 Dose: 40 mg Benzocaine/Menthol (Chloraseptic Sore Throat Lozenge) 1 lozenge BUCCAL UNSCH PRN PRN Reason: SORE THROAT Bisacodyl (Dulcolax Supp) 10 mg RECTAL DAILY PRN PRN Reason: SEVERE CONSITIPATION Carvedilol (Coreg) 12.5 mg PO BID [facility] Last Admin: 05/02/18 08:21 Dose: 12.5 mg Clonidine HCl (Catapres) 0.2 mg PO Q6H PRN PRN Reason: SBP>180, DBP>110 Last Admin: 04/25/18 18:34 Dose: 0.2 mg Flumazenil (Romazicon Inj) 0.2 mg IV.PUSH Q1M PRN PRN Reason: OVERSEDATION Furosemide (Lasix) 40 mg PO DAILY [facility] Last Admin: 05/02/18 08:21 Dose: 40 mg Haloperidol Lactate (Haldol Inj) 1 mg IV.PUSH Q15M PRN PRN Reason: for severe agitation Heparin Sodium (Porcine) (Heparin Inj) 5,000 units SQ Q12H [facility] Last Admin: 05/02/18 05:46 Dose: 5,000 units Hydralazine HCl (Apresoline) 25 mg PO TID [facility] Last Admin: 05/02/18 08:21 Dose: 25 mg Lactulose (Lactulose Liq) 30 ml PO DAILY PRN PRN Reason: SEVERE CONSITIPATION Levofloxacin (Levaquin) 750 mg PO DAILY [facility] Stop: 05/08/18 09:59 Last Admin: 05/02/18 08:22 Dose: 750 mg Lisinopril (Prinivil) 40 mg PO DAILY [facility] Last Admin: 05/02/18 08:23 Dose: 40 mg Lorazepam (Ativan Inj) 2 mg IV.PUSH Q15M PRN PRN Reason: for CIWA > 20 Lorazepam (Ativan Inj) 2 mg IV.PUSH Q1H PRN PRN Reason: for CIWA 15-20 Lorazepam (Ativan) 1 mg PO Q4H PRN PRN Reason: for CIWA 8-10 Lorazepam (Ativan) 2 mg PO Q2H PRN PRN Reason: for CIWA 11-14 Nicotine (Habitrol 21 Mg Patch.24 Hr) 1 patch T-DERMAL DAILY [facility] Last Admin: 05/02/18 08:22 Dose: 1 patch Patch Removal (Remove Old Patch) 1 each T-DERMAL DAILY [facility] Last Admin: 05/02/18 08:23 Dose: 1 each Polyethylene Glycol (Miralax) 17 gm PO DAILY [facility] Last Admin: 05/02/18 08:22 Dose: Not Given Prednisone (Deltasone) 50 mg PO DAILY [facility] Stop: 05/08/18 09:59 Last Admin: 05/02/18 08:22 Dose: 50 mg Senna/Docusate Sodium (Elinor-Colace) 1 tab PO BID [facility] Last Admin: 05/02/18 08:21 Dose: 1 tab Sennosides (Senokot) 17.2 mg PO Q12H PRN PRN Reason: Moderate Constipation Last Admin: 04/27/18 08:42 Dose: 17.2 mg Sodium Chloride (Ns Flush) 2 ml IV.FLUSH BID [facility] Last Admin: 05/02/18 08:22 Dose: Not Given Sodium Chloride (Ns Flush) 2 ml IV.FLUSH PRN PRN PRN Reason: FLUSH AFTER USING IV ACCESS Physical Exam Vital signs: Vital Signs 05/01/18 10:27 05/01/18 12:00 05/01/18 12:40 Temperature 98.4 F Pulse Rate 89 92 H 91 H Respiratory Rate 18 18 18 Blood Pressure 142/80 H Pulse Oximetry 96 99 05/01/18 16:00 05/01/18 19:24 05/01/18 20:00 Temperature 98.1 F 98.4 F Pulse Rate 80 96 H 87 Respiratory Rate 18 20 17 Blood Pressure 151/90 H 140/97 H Pulse Oximetry 95 96 93 L 05/01/18 20:15 05/02/18 00:00 05/02/18 00:01 Temperature 97.9 F Pulse Rate 87 80 82 Respiratory Rate 17 Blood Pressure 147/100 H Pulse Oximetry 95 05/02/18 03:58 05/02/18 04:00 05/02/18 07:37 Temperature 97.3 F L Pulse Rate 87 87 94 H Respiratory Rate 17 18 Blood Pressure 158/119 H Pulse Oximetry 97 05/02/18 07:38 05/02/18 08:00 Temperature 98.2 F Pulse Rate 86 Respiratory Rate 18 Blood Pressure 167/103 H Pulse Oximetry 92 L 95 Intake & Output 05/01/18 05/02/18 05/02/18 18:59 06:59 18:59 Intake Total 580 / 580 480 / 480 Output Total 1300 / 1300 Balance -720 / -720 480 / 480 Weight 75.3 kg Intake: Oral 580 / 580 480 / 480 Output: Urine 1300 / 1300 Other: # Voids 2 Date of Last Bowel Movement 05/02/18 # Bowel Movements 1 0 Narrative: General patient in no acute distress HEENT extraocular movements are intact, clear oropharyngeal mucosa, no JVD Cardiovascular S1-S2 audible, RRR, no murmurs rubs or gallops Respiratory : Diffuse coarse breath sound, minor wheezing noted, luke on the right side, moderate air entry. Abdomen soft, nontender, nondistended, normal bowel sounds Extremities no edema 2+ distal pulses in bilateral upper and lower extremities Neuro cranial nerves II through XII intact Results Labs CBC & Chem 7: 04/27/18 05:13 04/27/18 05:13 Caprini VTE Risk Assessment Caprini VTE Risk Assessment: Moderate/High Risk (score >= 2) Caprini Risk Assessment Model: Point Value = 1 Point Value = 2 Point Value = 3 Point Value = 5 Age 41-60 Minor surgery BMI > 25 kg/m2 Swollen legs Varicose veins or History of unexplained or recurrent spontaneous Oral contraceptives or hormone replacement Sepsis (< 1 month) Serious lung disease, including pneumonia (< 1 month) Abnormal pulmonary function Acute myocardial infarction Congestive heart failure (< 1 month) History of inflammatory bowel disease Medical patient at bed rest Age 61-74 Arthroscopic surgery Major open surgery (> 45 min) Laparoscopic surgery (> 45 min) Malignancy Confined to bed (> 72 hours) Immobilizing plaster cast Central venous access Age >= 75 History of VTE Family history of VTE Factor V Leiden Prothrombin [id number] Lupus anticoagulant Anticardiolipin antibodies Elevated serum homocysteine Heparin-induced thrombocytopenia Other congenital or acquired thrombophilia Stroke (< 1 month) Elective arthroplasty Hip, pelvis, or leg fracture Acute spinal cord injury (< 1 month) Prophylaxis Regimen: Total Risk Factor Score Risk Level Prophylaxis Regimen 0-1 Low Early ambulation 2 Moderate Order ONE of the following: *Sequential Compression Device (SCD) *Heparin 5000 units SQ BID 3-4 Higher Order ONE of the following medications: *Heparin 5000 units SQ TID *Enoxaparin/Lovenox 40 mg SQ daily (WT < 150 kg, CrCl > 30 mL/min) *Enoxaparin/Lovenox 30 mg SQ daily (WT < 150 kg, CrCl > 10-29 mL/min) *Enoxaparin/Lovenox 30 mg SQ BID (WT < 150 kg, CrCl > 30 mL/min) AND/OR *Sequential Compression Device (SCD) 5 or more Highest Order ONE of the following medications: *Heparin 5000 units SQ TID (Preferred with Epidurals) *Enoxaparin/Lovenox 40 mg SQ daily (WT < 150 kg, CrCl > 30 mL/min) *Enoxaparin/Lovenox 30 mg SQ daily (WT < 150 kg, CrCl > 10-29 mL/min) *Enoxaparin/Lovenox 30 mg SQ BID (WT < 150 kg, CrCl > 30 mL/min) AND *Sequential Compression Device (SCD) Assessment and Plan Plan This patient is a 57-year-old male with a diagnosis of COPD, hypertension, dyslipidemia. The patient presented to the emergency department with complaints of feeling weak and shortness of breath. He was subsequently found to be hypoxic and hypercapnic. The patient was subsequently admitted. Acute hypoxic hypercapnic respiratory failure COPD exacerbation -Patient will likely need fci supplemental O2 at least for one year. -Chest imaging showed findings consistent with COPD, no PE. -ABG showed hypoxia and hypercapnia. -Patient was started on breathing treatments [id number], steroids. -Pt was on Azithromycin, we switched to Levaquin. -Switch IV steroid to PO prednisone. -Keep O2 saturation above 92%. -Leukocytosis likely secondary to steroid use. Alcohol withdrawals -No current signs of alcohol withdrawal -Continue CIWA protocol Hypertension -Continue amlodipine, Coreg, lisinopril, -Hydralazine will be added to the patient's blood pressure medication regimen. Dyslipidemia -Continue statin Full code. Heparin for DVT prophylaxis. H&P: Quality VTE Deep Vein Thrombosis/Pulmonary Embolism Present on Admission: No
[2018-05-02 11:02] VITALS: PULSE 92
--- NOTE | 2018-05-02 11:53 | P.PNIM ---
Subjective Interval history: Follow-up for COPD exacerbation. He reports feeling much better today. Denies any chest pain, shortness of breath, fever or chills. Tolerating diet well. He is currently on nasal cannula. Home oxygen was delivered. Physical Exam Vital signs: Vital Signs 05/01/18 12:00 05/01/18 12:40 05/01/18 16:00 Temperature 98.4 F 98.1 F Pulse Rate 92 H 91 H 80 Respiratory Rate 18 18 18 Blood Pressure 142/80 H 151/90 H Pulse Oximetry 99 95 05/01/18 19:24 05/01/18 20:00 05/01/18 20:15 Temperature 98.4 F Pulse Rate 96 H 87 87 Respiratory Rate 20 17 Blood Pressure 140/97 H Pulse Oximetry 96 93 L 05/02/18 00:00 05/02/18 00:01 05/02/18 03:58 Temperature 97.9 F Pulse Rate 80 82 87 Respiratory Rate 17 Blood Pressure 147/100 H Pulse Oximetry 95 05/02/18 04:00 05/02/18 07:37 05/02/18 07:38 Temperature 97.3 F L Pulse Rate 87 94 H Respiratory Rate 17 18 Blood Pressure 158/119 H Pulse Oximetry 97 92 L 05/02/18 08:00 Temperature 98.2 F Pulse Rate 92 H Respiratory Rate 18 Blood Pressure 167/103 H Pulse Oximetry 95 Intake & Output 05/01/18 05/02/18 05/02/18 18:59 06:59 18:59 Intake Total 580 / 580 480 / 480 Output Total 1300 / 1300 Balance -720 / -720 480 / 480 Weight 75.3 kg Intake: Oral 580 / 580 480 / 480 Output: Urine 1300 / 1300 Other: # Voids 2 Date of Last Bowel Movement 05/02/18 # Bowel Movements 1 0 Narrative: General patient in no acute distress HEENT extraocular movements are intact, clear oropharyngeal mucosa, no JVD Cardiovascular S1-S2 audible, RRR, no murmurs rubs or gallops Respiratory : Overall improved breath sounds, minor wheezing noted, luke on the right side, moderate air entry. Abdomen soft, nontender, nondistended, normal bowel sounds Extremities no edema 2+ distal pulses in bilateral upper and lower extremities Neuro cranial nerves II through XII intact Results Labs CBC & Chem 7: 04/27/18 05:13 04/27/18 05:13 Procedures Procedures: none Assessment and Plan Plan This patient is a 57-year-old male with a diagnosis of COPD, hypertension, dyslipidemia. The patient presented to the emergency department with complaints of feeling weak and shortness of breath. He was subsequently found to be hypoxic and hypercapnic. The patient was subsequently admitted. Acute hypoxic hypercapnic respiratory failure COPD exacerbation -Patient will likely need fdc supplemental O2 at least for one year. -Chest imaging showed findings consistent with COPD, no PE. -ABG showed hypoxia and hypercapnia. -Patient was started on breathing treatments [id number], steroids. -Pt was on Azithromycin - continue in the outpatient setting. -Switch IV steroid to PO prednisone. -Keep O2 saturation above 92%. -Leukocytosis likely secondary to steroid use. Alcohol withdrawals -No current signs of alcohol withdrawal -Continue CIWA protocol Hypertension -Continue amlodipine, Coreg, lisinopril, -Hydralazine will be added to the patient's blood pressure medication regimen. Dyslipidemia -Continue statin Full code. Heparin for DVT prophylaxis. Overall, patient improved. He will follow up with [facility]. He is going home with his parents today. Progress Note: Quality VTE Deep Vein Thrombosis/Pulmonary Embolism Present on Admission: No
== END 2018-05-02 10:25 | disposition home or self-care (01) | DRG 189 ==
LOC: NEDA 13:37 → NEPC 13:37 → HIMC 22:00 → N04 04-28 17:15
PROVIDERS: ADMIT Hospitalist; ATTEND Hospitalist
CPT/HCPCS: 36600; 71010; 71045; 71275; 80048; 80053; 80076; 82140; 82607; 82805; 82948; 82962; 83520; 83880; 84443; 84484; 85025; 85027; 87641; 90774; 90775; 90784; 94002; 94003; 94150; 94618; 94620; 94640; 94656; 94657; 94664; 94665; 96374; 96375; 97110; 97116; 97162; 99285; C8952; J1644; J1940; J2920; J2930; J7506; J7512; Q9967